=== PATIENT | male | born 1940 | race Caucasian/White ===

== ENCOUNTER 2023-04-09 10:20 | Inpatient (IN) | payer MEDICARE ==
[2023-04-09 10:34] LABS: Glucose,Whole Blood 139 mg/dL (70-110)
--- NOTE | 2023-04-09 11:06 | CT ---
EXAMINATION TYPE: CT brain wo con for TPA CT DLP: 1057 mGycm, Automated exposure control for dose reduction was used. DATE OF EXAM: 04/09/2023 10:54 AM COMPARISON: None.. CLINICAL INDICATION:Male, 82 years old with history of Neuro deficit, acute, stroke suspected, Lt leg numbness TECHNIQUE: Brain: Axial CT images of the brain were obtained with coronal and sagittal reformats created and rev iewed. Contrast used: None. Oral contrast used: None. FINDINGS: Brain: Extra-axial spaces: No abnormal extra-axial fluid collections. Ventricular system: Within normal limits Cerebral parenchyma: No acute intraparenchymal hemorrhage or mass effect. Multiple focal areas of hy poattenuation are noted bilaterally in the subcortical and periventricular white matter. Cerebellum: Unremarkable. Mass effect: No evidence of midline shift. Intracranial vasculature: Atherosclerotic calcifications of the intracranial vessels. Soft tissues: Normal. Calvarium/osseous structures: No depressed skull fracture. Paranasal sinuses and mastoid air cells: Mild scattered paranasal sinus disease. Visualized orbits: Bilateral aphakia IMPRESSION: 1. No evidence of intracranial hemorrhage. 2. Bilateral multifocal areas of hypoattenuation, favored remote punctate infarcts with encephalomala kvng and chronic ischemic small vessel changes.
[2023-04-09 11:09] LABS: Basophils % (A) 0 %; Eosinophils # (A) 0.5 k/uL (0-0.7); Eosinophils % (A) 7 %; HCT 41.6 % (39.0-53.0); HGB 14.1 gm/dL (13.0-17.5); Lymphocytes # (A) 1.4 k/uL (1.0-4.8); Lymphocytes % (A) 21 %; MCH 31.1 pg (25.0-35.0); MCHC 33.8 g/dL (31.0-37.0); MCV 91.8 fL (80.0-100.0); Mean Platelet Volume 7.9; Monocytes # (A) 0.4 k/uL (0-1.0); Monocytes % (A) 6 %; Neutrophils # (A) 4.2 k/uL (1.3-7.7); Neutrophils % (A) 64 %; Platelet Count 166 k/uL (150-450); RBC 4.53 m/uL (4.30-5.90); RDW 13.2 % (11.5-15.5); WBC 6.5 k/uL (3.8-10.6)
--- NOTE | 2023-04-09 11:17 | CT ---
EXAMINATION TYPE: CT angio head neck CT DLP: 511.6 mGycm, Automated exposure control for dose reduction was used. DATE OF EXAM: 04/09/2023 11:10 AM COMPARISON: . CLINICAL INDICATION:Male, 82 years old with history of Neuro deficit, acute, stroke suspected; PHH, L t leg weakness TECHNIQUE: Axially acquired helical CT angiogram of the head and neck was obtained with contrast. Axi al images are supplemented with 3D reconstructions which [facility] NASCET criteria used. Contrast used:65 mL of Isovue 300 with IV Contrast, Oral contrast used: None. FINDINGS: CTA HEAD: No evidence of acute intracranial hemorrhage, mass effect, or midline shift. The ventricles, sulci, a nd cisterns are unremarkable. The visualized portions of the internal carotid arteries, middle cerebral arteries, anterior cerebral arteries, and posterior cerebral arteries are patent. Multifocal right-sided M2/M3 segment stenoses. Mild focal left M1 segment stenosis. Partial circulation identified on the left. Multifocal ri ght P2/P3 segment stenosis The basilar and vertebral arteries are patent. Mild left V4 focal stenosis. CTA NECK: Right Carotid System: The common carotid artery and external carotid artery are patent. The carotid bifurcation demonstrate s no evidence of hemodynamically significant stenosis. The remaining portions of the internal carotid artery demonstrate normal size without significant narrowing. Left Carotid System: The common carotid artery and external carotid artery are patent. The carotid bifurcation demonstrate s no evidence of hemodynamically significant stenosis. The remaining portions of the internal carotid artery demonstrate normal size without significant narrowing. Vertebral arteries are patent without evidence hemodynamically significant stenosis. Mild stenosis of the origins of the vertebral artery secondary to calcified plaque. There is a three-vessel aortic arch. The origins of the great vessels are patent. No evidence of hemo dynamically significant stenosis. Upper thorax: Unremarkable. Bilateral subcentimeter thyroid nodules. IMPRESSION: 1. No evidence of dissection of the cervical internal carotid arteries or vertebral arteries or any e vidence of significant stenosis at the carotid bifurcations. 2. No evidence of intracranial high-grade stenosis or intracranial aneurysm. 3. Bilateral focal mild to moderate stenoses of the distal intracranial vasculature as described.
[2023-04-09 11:18] LABS: INR 0.9 (<1.2); Partial Thromboplastin Time 22.2 sec (22.0-30.0); Prothrombin Time 10.3 sec (10.0-12.5)
[2023-04-09 11:30] LABS: ALT 37 U/L (4-49); AST 26 U/L (17-59); African American GFR (CKD) 89 (>60 ml/min/1.73 sqM); Albumin 3.9 g/dL (3.5-5.0); Alkaline Phosphatase 90 U/L (38-126); Anion Gap 10 mmol/L; Blood Urea Nitrogen 16 mg/dL (9-20); Carbon Dioxide 22 mmol/L (22-30); Chloride 106 mmol/L (98-107); Creatine Kinase 116 U/L (55-170); Glucose 141 mg/dL (74-99); Non-African American GFR(CKD) 77 (>60 ml/min/1.73 sqM); Potassium 4.1 mmol/L (3.5-5.1); Sodium 138 mmol/L (137-145); Total Bilirubin 0.6 mg/dL (0.2-1.3); Total Protein 6.7 g/dL (6.3-8.2)
--- NOTE | 2023-04-09 11:39 | XR ---
EXAMINATION TYPE: XR chest 2V DATE OF EXAM: 04/09/2023 11:31 AM CLINICAL INDICATION:Male, 82 years old with history of altered mental status; [facility] COMPARISON: Chest radiographs from TECHNIQUE: XR chest 2V Frontal and lateral views of the chest. FINDINGS: Lungs/Pleura: There is no evidence of pleural effusion, focal consolidation, or pneumothorax. Pulmonary vascularity: Unremarkable. Heart/mediastinum: Cardiomediastinal silhouette is unremarkable. Musculoskeletal: No acute osseous pathology. IMPRESSION: No acute cardiopulmonary disease/process.
--- NOTE | 2023-04-09 13:01 | ED ---
General Adult HPI - General Chief complaint: Neuro Symptoms/Deficit Stated complaint: Neuro/weakness Time Seen by Provider: 04/09/23 10:25 Source: patient Mode of arrival: EMS Limitations: no limitations - History of Present Illness Initial comments: 82-year-old male with past history of dementia, hypertension who presents emergency department from an [facility] home. It is reported that the patient went to bed at 5 PM per the daughter. He was his normal self. He awoke this morning at 7:15 AM and had to crawl on the floor to get out of his room. He states he had complete numbness and tingling to his left leg and weakness in his left arm. Patient had speech deficit. No history of stroke. He does not take any blood thinners. He denies any headaches or visual changes. EMS report that the patient had complete resolution of his symptoms upon my evaluation the patient does have some weakness of his left upper extremity with drift and some left s ided facial droop as well as some dysarthria. No chest pain or short of breath. No other alleviating, precipitating or modifying factors - Related Data Home Medications Medication Instructions Recorded Confirmed ALPRAZolam [Xanax] 0.125 - 0.25 mg PO DAILY PRN 04/09/23 04/09/23 Donepezil [Aricept] 5 mg PO DAILY 04/09/23 04/09/23 Fluticasone/Umeclidin/Vilanter 1 puff INHALATION RT-DAILY 04/09/23 04/09/23 [Trelegy Ellipta 100-62.5-25] Losartan Potassium [Cozaar] 100 mg PO DAILY 04/09/23 04/09/23 Rosuvastatin [Crestor] 20 mg PO DAILY 04/09/23 04/09/23 amLODIPine [Norvasc] 10 mg PO DAILY 04/09/23 04/09/23 Allergies Allergy/AdvReac Type Severity Reaction Status Date / Time No Known Allergies Allergy Verified 04/09/23 13:25 Review of Systems ROS Statement: Those systems with pertinent positive or pertinent negative responses have been documented in the HPI. ROS Other: All systems not noted in ROS Statement are negative. Past Medical History Past Medical History: Hypertension Additional Past Medical History / Comment(s): Dementia, Past Surgical History: Unable to Obtain Past Psychological History: No Psychological Hx Reported Smoking Status: Former smoker Past Alcohol Use History: Occasional Past Drug Use History: None Reported General Exam Limitations: no limitations General appearance: alert, in no apparent distress Head exam: Present: atraumatic, normocephalic, normal inspection Eye exam: Present: normal appearance, PERRL, EOMI. Absent: scleral icterus, conjunctival injection, periorbital swelling ENT exam: Present: normal exam, mucous membranes moist Neck exam: Present: normal inspection. Absent: tenderness, meningismus, lymphadenopathy Respiratory exam: Present: normal lung sounds bilaterally. Absent: respiratory distress, wheezes, rales, rhonchi, stridor Cardiovascular Exam: Present: regular rate, normal rhythm, normal heart sounds. Absent: systolic murmur, diastolic murmur, rubs, gallop, clicks GI/Abdominal exam: Present: soft, normal bowel sounds. Absent: distended, tenderness, guarding, rebound, rigid Extremities exam: Present: normal inspection, full ROM, normal capillary refill. Absent: tenderness, pedal edema, joint swelling, calf tenderness Back exam: Present: normal inspection Neurological exam: Present: alert, other (Minor left-sided facial droop, minor dysarthria, drift of the left upper extremity) Psychiatric exam: Present: normal affect, normal mood Skin exam: Present: warm, dry, intact, normal color. Absent: rash Course Vital Signs 04/09/23 04/09/23 04/09/23 10:22 10:40 10:55 Temperature 98.2 F Pulse Rate 65 56 L 58 L Respiratory 18 18 18 Rate Blood Pressure 176/86 162/80 157/87 O2 Sat by Pulse 96 98 96 Oximetry 04/09/23 04/09/23 04/09/23 11:10 11:35 11:50 Temperature Pulse Rate 58 L 59 L 55 L Respiratory 18 18 18 Rate Blood Pressure 163/84 170/69 O2 Sat by Pulse 97 97 97 Oximetry 04/09/23 04/09/23 04/09/23 12:05 12:20 12:35 Temperature Pulse Rate 58 L 60 68 Respiratory 18 18 18 Rate Blood Pressure 163/90 160/87 158/79 O2 Sat by Pulse 96 98 98 Oximetry 04/09/23 04/09/23 04/09/23 13:05 13:35 14:05 Temperature 98.6 F Pulse Rate 60 59 L 61 Respiratory 18 18 18 Rate Blood Pressure 154/97 146/103 150/86 O2 Sat by Pulse 97 95 96 Oximetry 04/09/23 04/09/23 14:30 15:05 Temperature Pulse Rate 59 L 65 Respiratory 18 18 Rate Blood Pressure 150/87 O2 Sat by Pulse 95 96 Oximetry Medical Decision Making - Medical Decision Making Was pt. sent in by a medical professional or institution (, PA, SHELL FREEZING MACHINE OPERATOR, urgent care, hospital, or skilled nursing...) When possible be specific @ -No Did you speak to anyone other than the patient for history (EMS, parent, family, police, friend...)? What history was obtained from this source @ -Spoke with EMS and the patient's daughter Did you review nursing and triage notes (agree or disagree)? Why? @ -I reviewed and agree with nursing and triage notes Were old charts reviewed (outside hosp., previous admission, EMS record, old EKG, old radiological studies, urgent care reports/EKG's, skilled nursing records)? Report findings @ -No old charts were reviewed Differential Diagnosis (chest pain, altered mental status, abdominal pain women, abdominal pain men, vaginal bleeding, weakness, fever, dyspnea, syncope, headache, dizziness, GI bleed, back pain, seizure, CVA, palpatations, mental health, musculoskeletal)? @ -Differential CVA Ischemic stroke, hemorrhagic stroke, brain tumor, atypical migraine, Wernicke's encephalopathy, seizure, multiple sclerosis, meningitis, encephalitis, hypoglycemia, Guillain-Moe, electrolytes disturbance, myasthenia gravis.... This is not meant to be an all-inclusive list EKG interpreted by me (3pts min.). @ -Yes and demonstrates sinus bradycardia with a rate of 56. VA interval to 50. QRS 173. QTC of 504. Right bundle branch block. No high degree heart block. First-degree heart block X-rays interpreted by me (1pt min.). @ -Yes and demonstrates no acute intrathoracic process CT interpreted by me (1pt min.). @ -Yes and demonstrates punctate foci bilaterally U/S interpreted by me (1pt. min.). @ -None done What testing was considered but not performed or refused? (CT, X-rays, U/S, labs)? Why? @ -None What meds were considered but not given or refused? Why? @ -None Did you discuss the management of the patient with other professionals (professionals i.e. , PA, SHELL FREEZING MACHINE OPERATOR, lab, RT, psych nurse, social organization professor, charging manipulator, teacher, traffic officer, field nurse case manager)? Give summary @ -Spoke with Dr. Mchugh in regards to symptoms Was smoking cessation discussed for >3mins.? @ -No Was critical care preformed (if so, how long)? @ -Yes, 35 minutes for code stroke activation Were there social determinants of health that impacted care today? How? (Homeles sness, low income, unemployed, alcoholism, drug addiction, transportation, low edu. Level, literacy, decrease access to med. care, custodial, rehab)? @ -Yes patient lives at an [facility] due to advanced dementia Was there de-escalation of care discussed even if they declined (Discuss DNR or withdrawal of care, Hospice)? DNR status @ -Yes patient has an advanced directive with no CODE STATUS What co-morbidities impacted this encounter? (DM, HTN, Smoking, COPD, CAD, Cancer, CVA, ARF, Chemo, Hep., AIDS, mental health diagnosis, sleep apnea, morbid obesity)? @ -dementia Was patient admitted / discharged? Hospital course, mention meds given and route, prescriptions, significant lab abnormalities, going to OR and other pertinent info. @ -Admitted. Upon arrival patient was placed into room 23. NIH is assessed and the patient scores a 3. Code stroke is activated. Last known well was 5 pm. Laboratory studies are conducted. Patient does go for CT and CT angiography of the brain. CT does demonstrate multiple punctate foci bilaterally of hypoattenuation. He is not a TPA candidate as he is outside the window for treatment. Results are discussed with his family. Recommended admission for which the patient and family were agreeable. Patient was given an aspirin. Spoke with Dr. Wallace for admission Undiagnosed new problem with uncertain prognosis? @ -Yes Drug Therapy requiring intensive monitoring for toxicity (Heparin, Nitro, Insulin, Cardizem)? @ -No Were any procedures done? @ -No Diagnosis/symptom? @ -Acute left-sided facial droop, acute CVA suspected Acute, or Chronic, or Acute on Chronic? @ -Acute Uncomplicated (without systemic symptoms) or Complicated (systemic symptoms)? @ -Complicated Side effects of treatment? @ -No Exacerbation, Progression, or Severe Exacerbation? @ -No Poses a threat to life or bodily function? How? (Chest pain, USA, LA, pneumonia, PE, COPD, DKA, ARF, appy, cholecystitis, CVA, Diverticulitis, Homicidal, Suicidal, threat to staff... and all critical care pts) @ -Yes patient presents with strokelike symptoms - Lab Data Result diagrams: 04/09/23 10:35 04/09/23 10:35 Lab Results 04/09/23 04/09/23 04/09/23 Range/Units 10:33 10:35 10:35 WBC 6.5 (3.8-10.6) k/uL RBC 4.53 (4.30-5.90) m/uL Hgb 14.1 (13.0-17.5) gm/dL Hct 41.6 (39.0-53.0) % MCV 91.8 (80.0-100.0) fL MCH 31.1 (25.0-35.0) pg MCHC 33.8 (31.0-37.0) g/dL RDW 13.2 (11.5-15.5) % Plt Count 166 (150-450) k/uL MPV 7.9 Neutrophils % 64 % Lymphocytes % 21 % Monocytes % 6 % Eosinophils % 7 % Basophils % 0 % Neutrophils # 4.2 (1.3-7.7) k/uL Lymphocytes # 1.4 (1.0-4.8) k/uL Monocytes # 0.4 (0-1.0) k/uL Eosinophils # 0.5 (0-0.7) k/uL Basophils # 0.0 (0-0.2) k/uL PT 10.3 (10.0-12.5) sec INR 0.9 (<1.2) APTT 22.2 (22.0-30.0) sec Sodium (137-145) mmol/L Potassium (3.5-5.1) mmol/L Chloride (98-107) mmol/L Carbon Dioxide (22-30) mmol/L Anion Gap mmol/L BUN (9-20) mg/dL Creatinine (0.66-1.25) mg/dL Est GFR (CKD-EPI)AfAm (>60 ml/min/1.73 sqM) Est GFR (CKD-EPI)NonAf (>60 ml/min/1.73 sqM) Glucose (74-99) mg/dL POC Glucose (mg/dL) 139 H (70-110) mg/dL POC Glu [employer] Mabel Schulte Calcium (8.4-10.2) mg/dL Total Bilirubin (0.2-1.3) mg/dL AST (17-59) U/L ALT (4-49) U/L Alkaline Phosphatase (38-126) U/L Creatine Kinase (55-170) U/L Troponin I (0.000-0.034) ng/mL Total Protein (6.3-8.2) g/dL Albumin (3.5-5.0) g/dL 04/09/23 04/09/23 Range/Units 10:35 10:35 WBC (3.8-10.6) k/uL RBC (4.30-5.90) m/uL Hgb (13.0-17.5) gm/dL Hct (39.0-53.0) % MCV (80.0-100.0) fL MCH (25.0-35.0) pg MCHC (31.0-37.0) g/dL RDW (11.5-15.5) % Plt Count (150-450) k/uL MPV Neutrophils % % Lymphocytes % % Monocytes % % Eosinophils % % Basophils % % Neutrophils # (1.3-7.7) k/uL Lymphocytes # (1.0-4.8) k/uL Monocytes # (0-1.0) k/uL Eosinophils # (0-0.7) k/uL Basophils # (0-0.2) k/uL PT (10.0-12.5) sec INR (<1.2) APTT (22.0-30.0) sec Sodium 138 (137-145) mmol/L Potassium 4.1 (3.5-5.1) mmol/L Chloride 106 (98-107) mmol/L Carbon Dioxide 22 (22-30) mmol/L Anion Gap 10 mmol/L BUN 16 (9-20) mg/dL Creatinine 0.93 (0.66-1.25) mg/dL Est GFR (CKD-EPI)AfAm 89 (>60 ml/min/1.73 sqM) Est GFR (CKD-EPI)NonAf 77 (>60 ml/min/1.73 sqM) Glucose 141 H (74-99) mg/dL POC Glucose (mg/dL) (70-110) mg/dL POC Glu [employer] ID Calcium 9.0 (8.4-10.2) mg/dL Total Bilirubin 0.6 (0.2-1.3) mg/dL AST 26 (17-59) U/L ALT 37 (4-49) U/L Alkaline Phosphatase 90 (38-126) U/L Creatine Kinase 116 (55-170) U/L Troponin I <0.012 (0.000-0.034) ng/mL Total Protein 6.7 (6.3-8.2) g/dL Albumin 3.9 (3.5-5.0) g/dL Disposition Clinical Impression: Cerebrovascular accident (CVA), Facial droop, Left arm weakness Disposition: ADMITTED IP TO THIS [facility] Condition: Serious Is patient prescribed a controlled substance at d/c from ED?: No Time of Disposition: 13:04 Decision to Admit Reason: Admit from EC Decision Date: 04/09/23 Decision Time: 13:04
[2023-04-09] MEDS ORDERED: ASPIRIN 325 MG TAB PO STA (13:05)
[2023-04-09] MEDS ORDERED: ALPRAZolam 0.25 MG TAB PO PRN (15:11)
--- NOTE | 2023-04-09 15:11 | P.HPIM ---
History of Present Illness H&P Date: 04/09/23 History of Presenting Illness: Patient is a very pleasant 82-year-old male with a past medical history of dementia, hypertension, and hyperlipidemia. He presented to emergency de partment from an [facility] home with reports that patient went bed at 5 PM the evening before and awoke this morning at 7:15 AM with left-sided weakness and had to crawl on the floor to get out of his room. Patient was reported to have a speech deficit and left-sided facial droop. EMS was called for transportation to the hospital. Upon arrival to our facility patient continues with left-sided facial droop and left upper extremity arm drift. Patient appears to have equal strength and movement of the bilateral lower extremities. Speech is currently clear, patient is noted to have mild expressive aphasia but this may also be baseline with his dementia. He is currently alert to person and place but confused to time and situation and this is reported to be patient's baseline. Patient following commands and is denying any complaints at this time including headache, lightheadedness, dizziness, changes in vision or hearing, dysphasia or difficulty swallowing, chest pain or palpitations, shortness of breath, or experiencing any numbness/tingling in his extremities. Patient underwent full evaluation the emergency department. Vital signs upon arrival as follows blood pressure 176/86, heart rate 65, respiratory rate 18, temperature 98.2F, SpO2 96% on room air EKG completed showing sinus bradycardia at 56 bpm with a first- degree AV block with DC interval of 250 ms. Gujxa-kl-[id number] glucose was completed resulting in the 139. CT head was completed negative for acute intercranial process revealing bilateral multifocal areas of hypotension relation favoring remote punctate infarcts with encephalomalacia and chronic ischemic small vessel changes. Labs completed and reviewed. CBC, coagulation profile, and CMP were all unremarkable. Troponin was negative at less than 0.012. CTA head revealed bilateral focal mild to moderate stenosis of the distal intracranial vascular and no evidence of intracranial high-grade stenosis or aneurysm. CTA neck showing no evidence of dissection of the cervical internal carotid arteries or vertebral arteries and no evidence of significant stenosis at carotid bifurcations. Stroke code was called upon patient's arrival. ED doctor reported initial NIH of 3, activated code stroke and discussed case with neuro interventional is Dr. Vazquez, reporting patient is not a candidate for TPA secondary to being outside of the window for treatment. patient being admitted under our services with consultation to neurology. Review of systems: Pertinent positives and negatives as discussed in HPI, a complete review of systems was performed and all other systems are negative. Physical exam: Vital signs reviewed and stable. General: Nontoxic, no distress and appears stated age. Derm: Skin warm and dry, normal coloration for ethnicity. Head: Atraumatic, normocephalic and symmetric. Eyes: EOMs intact, no lid lag, and anicteric sclera Mouth: no lip lesions, mucus membranes moist Cardiovascular: regular rate and rhythm with normal S1S2, systolic murmur, positive posterior tibial pulses bilaterally, and cap refill < 2 seconds. Lungs: Respirations even, regular, and unlabored on room air. Lungs diminished, no adventitious sounds noted including crackles, rales, rhonchi, or wheezes. No accessory muscle usage. Abdominal: soft, nontender to palpation, no guarding, no appreciable organomegaly Ext: ROM intact. No gross muscle atrophy, no edema, no contractures Neuro: Speech clear but did have some expressive aphasia unclear if this is baseline, left-sided facial droop present, GCS 14. Psych: Alert and oriented to person, place, time, and situation. Appropriate and pleasant affect. Assessment and Plan of Care: Left-sided facial droop and left upper extremity weakness, likely acute CVA Hypertension Hyperlipidemia Dementia -NIH stroke scale -Neuro checks every 15 minutes 8, every 30 minutes 12, hourly 16, and every 4 hours. -Fall precautions -Consult to physical and occupational therapy -Consult to speech and language pathologist -Bedside swallow eval, if patient passes may start on heart healthy diet -Patient started on daily aspirin 81 mg and atorvastatin 40 mg. -Patient may resume losartan 900 mg daily starting tomorrow. At this time we will allow for permissive hypertension. -Patient to remain on continuous telemetry monitoring. -Order placed for echocardiogram. -Lipid profile to be completed with a.m. labs. Data and Imaging reviewed: -Vital signs upon arrival as follows blood pressure 176/86, heart rate 65, respiratory rate 18, temperature 98.2F, SpO2 96% on room air -EKG completed showing sinus bradycardia at 56 bpm with a first-degree AV block with DC interval of 250 ms. -Kpriv-gi-[id number] glucose was completed resulting in the 139. -CT head was completed negative for acute intercranial process revealing bilateral multifocal areas of hypotension relation favoring remote punctate infarcts with encephalomalacia and chronic ischemic small vessel changes. -Labs completed and reviewed. CBC, coagulation profile, and CMP were all unremarkable. Troponin was negative at less than 0.012. -CTA head revealed bilateral focal mild to moderate stenosis of the distal intracranial vascular and no evidence of intracranial high-grade stenosis or aneurysm. -CTA neck showing no evidence of dissection of the cervical internal carotid arteries or vertebral arteries and no evidence of significant stenosis at carotid bifurcations. Stroke code was activated in the emergency department upon patient's arrival. ED doctor reported initial NIH of 3, activated code stroke and discussed case with neuro interventional is Dr. Vazquez, reporting patient is not a candidate for TPA secondary to being outside of the window for treatment. patient being admitted under our services with consultation to neurology. CODE STATUS: DO NOT RESUSCITATE/DO NOT INTUBATE DVT prophylaxis: Lovenox Anticipated discharge date: Clinical course to determine Anticipated discharge place: clinical course to determine Patient was seen independently by Nurse Practitioner. This document was prepared using [employer] dictation software. Please allow for errors in field traffic investigator while rare they do occur. Rocky Dowling NP rendered care for this patient independently, reviewed the fin dings and plan as documented in the note above. I did not physically speak with or examine the patient on this date. Past Medical History Past Medical History: Hypertension Additional Past Medical History / Comment(s): Dementia, Past Surgical History: Unable to Obtain Past Psychological History: No Psychological Hx Reported Smoking Status: Former smoker Past Alcohol Use History: Occasional Past Drug Use History: None Reported Medications and Allergies Home Medications Medication Instructions Recorded Confirmed Type ALPRAZolam [Xanax] 0.125 - 0.25 mg PO DAILY PRN 04/09/23 04/09/23 History Donepezil [Aricept] 5 mg PO DAILY 04/09/23 04/09/23 History Fluticasone/Umeclidin/Vilanter 1 puff INHALATION RT-DAILY 04/09/23 04/09/23 History [Trelegy Ellipta 100-62.5-25] Losartan Potassium [Cozaar] 100 mg PO DAILY 04/09/23 04/09/23 History Rosuvastatin [Crestor] 20 mg PO DAILY 04/09/23 04/09/23 History amLODIPine [Norvasc] 10 mg PO DAILY 04/09/23 04/09/23 History Allergies Allergy/AdvReac Type Severity Reaction Status Date / Time No Known Allergies Allergy Verified 04/09/23 13:25 Physical Exam Vitals: Vital Signs Temp Pulse Resp BP Pulse Ox 04/09/23 14:30 59 L 18 95 04/09/23 14:05 61 18 150/86 96 04/09/23 13:35 98.6 F 59 L 18 146/103 95 04/09/23 13:05 60 18 154/97 97 04/09/23 12:35 68 18 158/79 98 04/09/23 12:20 60 18 160/87 98 04/09/23 12:05 58 L 18 163/90 96 04/09/23 11:50 55 L 18 170/69 97 04/09/23 11:35 59 L 18 97 04/09/23 11:10 58 L 18 163/84 97 04/09/23 10:55 58 L 18 157/87 96 04/09/23 10:40 56 L 18 162/80 98 04/09/23 10:22 98.2 F 65 18 176/86 96 Intake and Output 04/09/23 04/09/23 04/09/23 06:59 14:59 22:59 Output Total 550 Balance -550 Output: Urine 550 Other: # Voids 1 Weight 95.254 kg Results CBC & Chem 7: 04/09/23 10:35 04/09/23 10:35 Labs: Abnormal Lab Results - Last 24 Hours (Table) 04/09/23 04/09/23 Range/Units 10:33 10:35 Glucose 141 H (74-99) mg/dL POC Glucose (mg/dL) 139 H (70-110) mg/dL
[2023-04-09] MEDS: ENOXAPARIN 40 MG/0.4 ML SYRINGE SQ SCH (20:17)
[2023-04-09] MEDS ORDERED: ATORVASTATIN 80 MG TAB PO SCH (21:00)
[2023-04-10] MEDS ORDERED: NON FORMULARY DRUG (Fluticasone/Umeclidin/Vilanter [Trelegy Ellipta 100-62.5-25] 1 EACH Bl INHALATION SCH (08:00)
[2023-04-10] MEDS ORDERED: ASPIRIN 325 MG TAB PO SCH (09:00)
[2023-04-10] MEDS ORDERED: DONEPEZIL 5 MG TAB PO SCH (09:00)
[2023-04-10] MEDS ORDERED: ATORVASTATIN 40 MG TAB PO SCH (09:00)
[2023-04-10] MEDS: SYMBICORT 80-4.5 MCG INHALER INHALATION SCH ×2 (09:08→19:46)
[2023-04-10] MEDS: IPRATROPIUM 0.5 MG/2.5 ML NEBU INHALATION SCH ×4 (09:08→19:46)
[2023-04-10 11:01] LABS: Chol/HDL Ratio 2.33 Ratio; LDL Cholesterol,Calculated 38.5 mg/dL (0.0-131.0)
[2023-04-10 11:02] LABS: Glucose,Whole Blood 212 mg/dL (70-110)
[2023-04-10] MEDS: ASPIRIN 81 MG PO SCH (11:31)
[2023-04-10] MEDS: LOSARTAN 50 MG TAB PO SCH (11:31)
[2023-04-10] MEDS: amLODIPine 10 MG TAB PO SCH (11:31)
[2023-04-10] MEDS: ATORVASTATIN 40 MG TAB PO SCH (11:31)
[2023-04-10] MEDS: CLOPIDOGREL 75 MG TAB PO SCH (13:53)
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
--- NOTE | 2023-04-10 14:06 | CA ---
Transthoracic Echo Report Name: Riaz Monge Age: 82 Gender: M : 1940 Exam Date: 04/10/2023 14:01 Exam Location: [place] [facility] Ht (in): 71 Wt (lb): 210 Ordering Physician: Rocky Dowling Attending/Referring Phys: Gas Regulator Repairer Helper Feliz Garnica Procedure CPT: Indications: CVA Cardiac Hx: Technical Quality: Fair Contrast 1: Total Dose (mL): Contrast 2: Total Dose (mL): MEASUREMENTS (Male / Female) Normal Values 2D ECHO LV Diastolic Diameter PLAX 4.5 cm 4.2 - 5.9 / 3.9 - 5.3 cm LV Systolic Diameter PLAX 2.6 cm IVS Diastolic Thickness 1.0 cm 0.6 - 1.0 / 0.6 - 0.9 cm LVPW Diastolic Thickness 1.1 cm 0.6 - 1.0 / 0.6 - 0.9 cm LV Relative Wall Thickness 0.5 RV Internal Dim ED PLAX 2.9 cm LVOT Diameter 2.3 cm Aortic Root Diameter 3.5 cm LA Systolic Diameter LX 2.4 cm 3.0 - 4.0 / 2.7 - 3.8 cm LV Diastolic Volume MOD BP 75.2 cm??? 67 - 155 / 56 - 104 cm??? LV Systolic Volume MOD BP 33.8 cm??? 22 - 58 / 19 - 49 cm??? LV Ejection Fraction MOD BP 55.1 % >= 55 % LV Cardiac Index MOD BP 1165.9 cm???/min???m??? LV Diastolic Volume MOD 4C 88.9 cm??? LV Systolic Volume MOD 4C 35.5 cm??? LV Ejection Fraction MOD 4C 60.1 % LV Cardiac Index MOD 4C 1501.3 cm???/min???m??? LV Diastolic Length 4C 8.6 cm LV Systolic Length 4C 7.2 cm LV Diastolic Volume MOD 2C 56.0 cm??? LV Systolic Volume MOD 2C 31.2 cm??? LV Ejection Fraction MOD 2C 44.3 % LV Cardiac Index MOD 2C 698.5 cm???/min???m??? LV Diastolic Length 2C 7.4 cm LV Systolic Length 2C 7.0 cm LA Volume 49.5 cm??? 18 - 58 / 22 - 52 cm??? LA Volume Index 22.4 cm???/m??? 16 - 28 cm???/m??? Ascending Aorta Diameter 3.6 cm DOPPLER AV Peak Velocity 116.4 cm/s AV Peak Gradient 5.4 mmHg LVOT Peak Velocity 80.9 cm/s LVOT Peak Gradient 2.6 mmHg LVOT Velocity Time Integral 20.6 cm LVOT Stroke Volume 83.7 cm??? LVOT Stroke Volume Index 38.9 ml/m??? LVOT Cardiac Index 2351.5 cm???/min???m??? AV Area Cont Eq pk 2.8 cm??? MV Peak Velocity 108.0 cm/s MV Peak Gradient 4.7 mmHg MV Mean Velocity 59.3 cm/s MV Mean Gradient 1.7 mmHg MV Velocity Time Integral 42.7 cm Mitral E Point Velocity 67.7 cm/s Mitral A Point Velocity 96.7 cm/s Mitral E to A Ratio 0.7 MV Deceleration Time 486.3 ms MV E' Velocity 4.8 cm/s Mitral E to MV E' Ratio 14.1 TR Peak Velocity 99.9 cm/s TR Peak Gradient 4.0 mmHg Right Ventricular Systolic Press 9.0 mmHg PV Peak Velocity 124.1 cm/s PV Peak Gradient 6.2 mmHg FINDINGS Left Ventricle Normal LV size and wall thickness. Left ventricular ejection fraction is estimated at 50-55 %. Right Ventricle Normal right ventricular size. Right Atrium Normal right atrial size. Left Atrium Normal left atrial size. LA volume index= 23ml/m2 Mitral Valve Structurally normal mitral valve. No mitral regurgitation. Aortic Valve Trileaflet aortic valve. No aortic valve stenosis or regurgitation. Tricuspid Valve Structurally normal tricuspid valve. Trace TR. Pulmonic Valve Pulmonic valve not well visualized. No pulmonic regurgitation. Pericardium Normal pericardium. Aorta Not well visualized. CONCLUSIONS Left ventricular ejection fraction 50-55% No mitral regurgitation Trace tricuspid regurgitation No pericardial effusion Previewed by: Dr. Chseter Palencia DO (Electronically Signed) Final Date: 10 April 2023 14:05
--- NOTE | 2023-04-10 16:51 | P.PN ---
Subjective Progress Note Date: 04/10/23 History of Presenting Illness: Patient is a very pleasant 82-year-old male with a past medical history of dementia, hypertension, and hyperlipidemia. He presented to emergency [facility] from an [facility] home with reports that patient went bed at 5 PM the evening before and awoke this morning at 7:15 AM with left-sided weakness and had to crawl on the floor to get out of his room. Patient was reported to have a speech deficit and left-sided facial droop. EMS was called for transportation to the hospital. Upon arrival to our facility patient continues with left-sided facial droop and left upper extremity arm drift. Patient appears to have equal strength and movement of the bilateral lower extremities. Speech is currently clear, patient is noted to have mild expressive aphasia but this may also be baseline with his dementia. He is currently alert to person and place but co nfused to time and situation and this is reported to be patient's baseline. Patient following commands and is denying any complaints at this time including headache, lightheadedness, dizziness, changes in vision or hearing, dysphasia or difficulty swallowing, chest pain or palpitations, shortness of breath, or experiencing any numbness/tingling in his extremities. Patient underwent full evaluation the emergency department. Vital signs upon arrival as follows blood pressure 176/86, heart rate 65, respiratory rate 18, temperature 98.2F, SpO2 96% on room air EKG completed showing sinus bradycardia at 56 bpm with a first- degree AV block with CT interval of 250 ms. [id number]-kk-[id number] glucose was completed resulting in the 139. CT head was completed negative for acute intercranial process revealing bilateral multifocal areas of hypotension relation favoring remote punctate infarcts with encephalomalacia and chronic ischemic small vessel changes. Labs completed and reviewed. CBC, coagulation profile, and CMP were all unremarkable. Troponin was negative at less than 0.012. CTA head revealed bilateral focal mild to moderate stenosis of the distal intracranial vascular and no evidence of intracranial high-grade stenosis or aneurysm. CTA neck showing no evidence of dissection of the cervical internal carotid arteries or vertebral arteries and no evidence of significant stenosis at carotid bifurcations. Stroke code was called upon patient's arrival. ED doctor reported initial NIH of 3, activated code stroke and discussed case with neuro interventional is Dr. Vazquez, reporting patient is not a candidate for TPA secondary to being outside of the window for treatment. Patient being admitted under our services with consultation to neurology. Physical exam: Vital signs reviewed and stable. General: Nontoxic, no distress and appears stated age. Derm: Skin warm and dry, normal coloration for ethnicity. Head: Atraumatic, normocephalic and symmetric. Eyes: EOMs intact, no lid lag, and anicteric sclera Mouth: no lip lesions, mucus membranes moist Cardiovascular: regular rate and rhythm with normal S1S2, systolic murmur, positive posterior tibial pulses bilaterally, and cap refill < 2 seconds. Lungs: Respirations even, regular, and unlabored on room air. Lungs diminished, no adventitious sounds noted including crackles, rales, rhonchi, or wheezes. No accessory muscle usage. Abdominal: soft, nontender to palpation, no guarding, no appreciable organomegaly Ext: ROM intact. No gross muscle atrophy, no edema, no contractures Neuro: Speech clear but does have moments of slurring and mild expressive aphasia unclear if this is baseline, left-sided facial droop present, GCS 14. Continues to have left arm drop. Psych: Alert and oriented to person, place, time, and situation. Appropriate and pleasant affect. Assessment and Plan of Care: Left-sided facial droop and left upper extremity weakness, acute CVA Hypertension Hyperlipidemia Dementia -Continue NIH stroke scale with neuro checks every 4 hours.every 4 hours. -Fall precautions -Consult to physical and occupational therapy -Consult to speech and language pathologist -Patient passed bedside swallow eval and has been started on heart healthy diet -Continue daily aspirin 81 mg and atorvastatin 40 mg. -Continue losartan 100 mg daily. -Patient to remain on continuous telemetry monitoring. -Order placed for echocardiogram. -Lipid profile unremarkable. -Hemoglobin A1c 6.7% Data and Imaging reviewed: -Vital signs reviewed and stable, blood pressure 165/85, heart rate 61, respiratory rate 14, temp 98.2F, SpO2 of 97% on room air. -Hemoglobin A1c was elevated 6.7%, lipid profile unremarkable CODE STATUS: DO NOT RESUSCITATE/DO NOT INTUBATE DVT prophylaxis: Lovenox Anticipated discharge date: Clinical course to determine Anticipated discharge place: clinical course to determine Patient was seen independently by Nurse Practitioner. This document was prepared using [employer] dictation software. Please allow for errors in photographer's model while rare they do occur. Rocky Dowling NP rendered care for this patient independently, reviewed the findings and plan as documented in the note above. I did not physically speak with or examine the patient on this date. Objective - Vital Signs Vital signs: Vital Signs Temp 98.6 F 04/09/23 19:07 Pulse 61 04/10/23 05:24 Resp 20 04/10/23 05:24 BP 159/88 04/10/23 05:24 Pulse Ox 97 04/10/23 05:24 FiO2 Intake & Output 04/09/23 04/10/23 04/10/23 18:59 06:59 18:59 Output Total 550 Balance -550 Weight 95.254 kg Output: Urine 550 Other: # Voids 1 - Labs CBC & Chem 7: 04/09/23 10:35 04/09/23 10:35 Labs: Abnormal Lab Results - Last 24 Hours (Table) 04/09/23 04/09/23 Range/Units 10:33 10:35 Glucose 141 H (74-99) mg/dL POC Glucose (mg/dL) 139 H (70-110) mg/dL
[2023-04-10] MEDS: ENOXAPARIN 40 MG/0.4 ML SYRINGE SQ SCH (20:30)
[2023-04-11] MEDS: SYMBICORT 80-4.5 MCG INHALER INHALATION SCH ×2 (07:49→20:11)
[2023-04-11] MEDS: IPRATROPIUM 0.5 MG/2.5 ML NEBU INHALATION SCH ×4 (07:50→20:11)
[2023-04-11] MEDS: ASPIRIN 81 MG PO SCH (08:58)
[2023-04-11] MEDS: DONEPEZIL 10 MG TAB PO SCH (08:58)
[2023-04-11] MEDS: ATORVASTATIN 40 MG TAB PO SCH (08:58)
[2023-04-11] MEDS: CLOPIDOGREL 75 MG TAB PO SCH (08:58)
[2023-04-11] MEDS: LOSARTAN 50 MG TAB PO SCH (08:59)
[2023-04-11] MEDS: amLODIPine 10 MG TAB PO SCH (08:59)
--- NOTE | 2023-04-11 09:39 | MR ---
EXAMINATION TYPE: MR brain wo con DATE OF EXAM: 04/11/2023 9:21 AM CLINICAL INDICATION:Male, 82 years old with history of Acute stroke; PHH, Acute Stroke, Lt leg weakne ss COMPARISON: 04/09/2023. TECHNIQUE: Multi planar, multi sequence imaging was performed through the brain including: T1, T2, In version recovery, Diffusion weighted imaging, and gradient echo imaging. No gadolinium was given. FINDINGS: There is T2 shine through the bilateral frontal lobes with high DWI and ADC signal. These l esions have surrounding gliosis. The millan-white junctions, ventricular system, and cisterns appear unremarkable. Scattered foci of hi gh T2 signal intensity are seen within the periventricular white matter. Midline structures show no a bnormality. Diffusion-weighted imaging shows no evidence of restricted diffusion. The susceptibility weighted images punctate focus of blooming artifact left elda right thalamus and right and temporal l obe posteriorly. Facet is compatible with microhemorrhage. The bone marrow signal is within normal limits. Paranasal sinuses and mastoid air cells: No significant paranasal sinus disease. Visualized orbits: Orbital contents are intact. IMPRESSION: 1. No evidence for acute/subacute CVA. T2 shine through within the bilateral frontal lobes on diffusi on-weighted imaging suggesting remote injuries 2. Nonspecific white matter changes, likely secondary to small vessel ischemic disease.
[2023-04-11 12:49] LABS: Glucose,Whole Blood 205 mg/dL (70-110)
[2023-04-11] MEDS ORDERED: DEXTROSE 50% SYRINGE 50 ML IVP PRN ×2 (13:15)
--- NOTE | 2023-04-11 13:17 | P.PN ---
Subjective Progress Note Date: 04/11/23 Hospital Course: Patient is a very pleasant 82-year-old male with a past medical history of dementia, hypertension, and hyperlipidemia. He presented to emergency department from an [facility] home with reports that patient went bed at 5 PM the evening before and awoke this morning at 7:15 AM with left-sided weakness and had to crawl on the floor to get out of his room. Patient was reported to have a speech deficit and left-sided facial droop. EMS was called for transportation to the hospital. Upon arrival to our facility patient continues with left-sided facial droop and left upper extremity arm drift. Patient appears to have equal strength and movement of the bilateral lower extremities. Speech is currently clear, patient is noted to have mild expressive aphasia but this may also be baseline with his dementia. Vital signs upon arrival as follows blood pressure 176/86, heart rate 65, respiratory rate 18, temperature 98.2F, SpO2 96% on room air EKG completed showing sinus bradycardia at 56 bpm with a first-degree AV block with NJ interval of 250 ms. Zmnra-uv-qkzd glucose was completed resulting in the 139. CT head was completed negative for acute intercranial process revealing bilateral multifocal areas of hypotension relation favoring remote punctate infarcts with encephalomalacia and chronic ischemic small vessel changes. CBC, coagulation profile, and CMP were all unremarkable. Troponin was negative at less than 0.012. CTA head revealed bilateral focal mild to moderate stenosis of the distal intracranial vascular and no evidence of intracranial high-grade stenosis or aneurysm. CTA neck showing no evidence of dissection of the cervical internal carotid arteries or vertebral arteries and no evidence of significant stenosis at carotid bifurcations. Stroke code was called upon patient's arrival. ED doctor reported initial NIH of 3, activated code stroke and discussed case with neuro interventional is Dr. Vazquez, reporting patient is not a candidate for TPA secondary to being outside of the window for treatment. Patient being admitted under our services with consultation to neurology. Echocardiogram showed LVEF 50-55%, trace tricuspid regurgitation. Brain MRI showed no evidence of acute/subacute CVA, evidence of remote injuries, nonspecific white matter changes secondary to small vessel ischemic disease. Subjective: Patient seen and examined at bedside. No acute events overnight. Per daughter, patient will likely benefit from nursing facility. Pertinent positives and negatives as discussed above, a complete review of systems was performed and all other systems are negative. Vitals Signs Reviewed. General: nontoxic, no distress, appears at stated age Derm: warm, dry Head: atraumatic, normocephalic, symmetric Eyes: EOMI, no lid lag, anicteric sclera Mouth: no lip lesion, mucus membranes moist Cardiovascular: S1S2 reg, no murmur Lungs: CTA bilateral, no rhonchi, no rales , no accessory muscle use Abdominal: soft, nontender to palpation, no guarding, no appreciable organomegaly Ext: no gross muscle atrophy, no edema, no contractures Neuro: Left facial droop, left arm drift Psych: Alert, oriented 2, appropriate affect Data Reviewed Today: Pertinent Labs: Most blood glucose levels range between 139-212, A1c 6.7, LDL 38.5 Imaging: Echocardiogram showed LVEF 50-55%, trace tricuspid regurgitation. Brain MRI showed no evidence of acute/subacute CVA, evidence of remote injuries, nonspecific white matter changes secondary to small vessel ischemic disease. Assessment and Plan: Patient is currently being monitored in the ICU, no beds available on stepdown unit. Prognosis guarded. Active: Left-sided facial droop and left upper extremity weakness, acute CVA Hypertension Hyperlipidemia Dementia Type 2 diabetes, A1c 6.7 -Nephrology following, continue aspirin 81 mg daily, Plavix 75 mg for 21 days, Aricept increased to 10 mg daily -Continue atorvastatin 40 mg daily -continue amlodipine 10 mg, and losartan 100 mg daily -Started on sliding scale insulin, monitor for hypoglycemia -Continue neuro checks -Place patient on telemetry -PT/OT/speech therapy -Patient will likely need shelter facility DVT ppx: Lovenox Code status: Full code Anticipated discharge place: Pending clinical course Anticipated discharge time: Pending clinical course Objective - Vital Signs Vital signs: Vital Signs Temp 98.2 F 04/11/23 12:00 Pulse 90 04/11/23 12:46 Resp 16 04/11/23 12:46 BP 153/87 04/11/23 12:46 Pulse Ox 98 04/11/23 12:46 FiO2 Intake & Output 04/10/23 04/11/23 04/11/23 18:59 06:59 18:59 Intake Total 1450 Output Total 750 400 Balance -750 1050 Weight 89.7 kg Intake: IV 10 Invasive Line 1 10 Oral 1440 Output: Urine 750 400 Stool 0 Other: Voiding Method Urinal Bedside Commode Urinal Diaper Urinal # Voids 1 1 # Bowel Movements 1 - Labs CBC & Chem 7: 04/09/23 10:35 04/09/23 10:35 Labs: Abnormal Lab Results - Last 24 Hours (Table) 04/11/23 Range/Units 12:47 POC Glucose (mg/dL) 205 H (70-110) mg/dL
[2023-04-11 16:35] LABS: Glucose,Whole Blood 148 mg/dL (70-110)
[2023-04-11] MEDS: INSULIN ASPART (NovoLOG) 100 UNIT/ML VIAL SQ SCH ×2 (16:41→20:25)
[2023-04-11] MEDS ORDERED: LOSARTAN 50 MG TAB PO PRN (16:56)
[2023-04-11] MEDS ORDERED: amLODIPine 10 MG TAB PO PRN (16:56)
--- NOTE | 2023-04-11 17:18 | P.CRDCN ---
History of Present Illness Consult date: 04/11/23 History of present illness: HISTORY OF PRESENTING ILLNESS 82-year-old with PMH of dementia, HTN, hyperlipidemia. Presents to the emergency department due to the concerns of speech deficit and left-sided facial droop. Patient reports that he woke up twice a day symptoms at 7 AM. Last well-known time was 5. Before he went to sleep. On admission to ER he had left-sided facial droop and left upper extremity arm drift. Speech was clear but seemed to have mild expressive aphasia. He was not a candidate for TPA. His initial troponin was 0.12. CT head showed bilateral focal [id number] stenosis of distal intracranial vessels, with n o evidence of high-grade stenosis or aneurysms. His ECG showed sinus rhythm with first-degree AV block. CT head showed bilateral multifocal areas of hypoattenuation and multiple small areas of encep halomalacia. He's been treated for several aspirin accident and cardiology was consulted to look for any cardiac embolic etiology. REVIEW OF SYSTEMS 14 point review of system is negative except what is mentioned above in HPI. PHYSICAL EXAMINATION Vital signs reviewed. Head: Normocephalic. Eyes: Sclerae nonicteric. Neck: Brisk carotid upstroke, no jugular venous distention. Lungs: Clear to auscultation. Heart: Regular rate and rhythm, S1-S2, no S3, no murmur or rub. Abdomen: Soft nontender, positive bowel sounds no organomegaly. Extremities: No edema, intact distal pulses. Neuro: Alert, oritented, left sided facial droop ASSESSMENT Acute CVA Moderate intracranial vessel stenosis Essential hypertension next and Type II Diabetes history dyslipidemia Dementia Prior tobacco user PLAN Obtain an echocardiogram with bubble study Continue aspirin and Plavix as per neurology recommendations. Agree with discontinue Plavix after 21 days and continuing aspirin. Continue high-intensity statin Monitor on tele for Atrial fibrillation. No A. fib so far. On discharge plan for 30 day event monitor to be done from outpatient clinic. Past Medical History Past Medical History: Hypertension Additional Past Medical History / Comment(s): Dementia, History of Any Multi-Drug Resistant Organisms: None Reported Past Surgical History: Unable to Obtain Past Psychological History: No Psychological Hx Reported Smoking Status: Former smoker Past Alcohol Use History: Occasional Past Drug Use History: None Reported Medications and Allergies Home Medications Medication Instructions Recorded Confirmed Type ALPRAZolam [Xanax] 0.125 - 0.25 mg PO DAILY PRN 04/09/23 04/09/23 History Donepezil [Aricept] 5 mg PO DAILY 04/09/23 04/09/23 History Fluticasone/Umeclidin/Vilanter 1 puff INHALATION RT-DAILY 04/09/23 04/09/23 History [Trelegy Ellipta 100-62.5-25] Losartan Potassium [Cozaar] 100 mg PO DAILY 04/09/23 04/09/23 History Rosuvastatin [Crestor] 20 mg PO DAILY 04/09/23 04/09/23 History amLODIPine [Norvasc] 10 mg PO DAILY 04/09/23 04/09/23 History Allergies Allergy/AdvReac Type Severity Reaction Status Date / Time No Known Allergies Allergy Verified 04/09/23 13:25 Physical Exam Vitals: Vital Signs Temp Pulse Pulse Resp BP BP Pulse Ox 04/11/23 16:00 97.2 F L 72 14 165/90 95 04/11/23 12:46 90 16 153/87 98 04/11/23 12:00 98.2 F 75 14 154/78 95 04/11/23 07:56 57 L 14 157/90 95 04/11/23 04:00 98.0 F 56 L 14 156/78 95 04/11/23 00:00 97.8 F 57 L 14 139/78 98 04/10/23 20:00 97.7 F 53 L 14 157/88 97 Intake and Output 04/11/23 04/11/23 04/11/23 06:59 14:59 22:59 Intake Total 1460 600 Output Total 400 Balance 1060 600 Intake: IV 20 Invasive Line 1 20 Oral 1440 600 Output: Urine 400 Stool 0 Other: Voiding Method Urinal # Voids 1 1 # Bowel Movements 1 Weight 89.7 kg Results 04/09/23 10:35 04/09/23 10:35 Current Medications Generic Name Dose Route Start Last Admin Trade Name Freq PRN Reason Stop Dose Admin Alprazolam 0.25 mg 04/09/23 15:11 Alprazolam 0.25 Mg Tab PO DAILY PRN Anxiety Amlodipine Besylate 10 mg 04/11/23 16:56 Amlodipine 10 Mg Tab PO DAILY PRN BP > 200/120 Aspirin 81 mg 04/10/23 09:00 04/11/23 08:58 Aspirin 81 Mg PO 81 mg DAILY THIERRY Administration Atorvastatin Calcium 40 mg 04/10/23 09:00 04/11/23 08:58 Atorvastatin 40 Mg Tab PO 40 mg DAILY [facility] Administration Budesonide/Formoterol Fumarate 2 puff 04/10/23 08:00 04/11/23 07:49 Symbicort 80-4.5 Mcg Inhaler INHALATION Not Given RT-BID [facility] Clopidogrel Bisulfate 75 mg 04/10/23 13:15 04/11/23 08:58 Clopidogrel 75 Mg Tab PO 75 mg DAILY THIERRY Administration Dextrose/Water 25 ml 04/11/23 13:15 Dextrose 50% Syringe 50 Ml IVP PER PROTOCOL PRN Hypoglycemia Protocol Dextrose/Water 50 ml 04/11/23 13:15 Dextrose 50% Syringe 50 Ml IVP PER PROTOCOL PRN Hypoglycemia Protocol Donepezil HCl 10 mg 04/11/23 09:00 04/11/23 08:58 Donepezil 10 Mg Tab PO 10 mg DAILY [facility] Administration Enoxaparin Sodium 40 mg 04/09/23 19:00 04/10/23 20:30 Enoxaparin 40 Mg/0.4 Ml Syringe SQ 40 mg HS [facility] Administration Insulin Aspart 0 unit 04/11/23 17:30 04/11/23 16:41 Insulin Aspart (Novolog) 100 Unit/Ml Vial SQ Not Given ACHS [facility] Protocol Ipratropium [place] 0.5 mg 04/10/23 08:00 04/11/23 15:28 Ipratropium 0.5 Mg/2.5 Ml Nebu INHALATION Not Given RT-QID [facility] Losartan Potassium 100 mg 04/11/23 16:56 Losartan 50 Mg Tab PO DAILY PRN BP > 200/120 Intake and Output 04/11/23 04/11/23 04/11/23 06:59 14:59 22:59 Intake Total 1460 600 Output Total 400 Balance 1060 600 Intake: IV 20 Invasive Line 1 20 Oral 1440 600 Output: Urine 400 Stool 0 Other: Voiding Method Urinal # Voids 1 1 # Bowel Movements 1 Weight 89.7 kg 04/09/23 10:35 04/09/23 10:35
[2023-04-11] MEDS: ENOXAPARIN 40 MG/0.4 ML SYRINGE SQ SCH (20:25)
[2023-04-11 20:26] LABS: Glucose,Whole Blood 126 mg/dL (70-110)
[2023-04-12 06:47] LABS: Glucose,Whole Blood 133 mg/dL (70-110)
[2023-04-12] MEDS: INSULIN ASPART (NovoLOG) 100 UNIT/ML VIAL SQ SCH ×4 (07:03→20:32)
[2023-04-12] MEDS: SYMBICORT 80-4.5 MCG INHALER INHALATION SCH ×2 (07:38→20:08)
[2023-04-12] MEDS: IPRATROPIUM 0.5 MG/2.5 ML NEBU INHALATION SCH ×4 (07:38→20:08)
[2023-04-12] MEDS: ASPIRIN 81 MG PO SCH (09:19)
[2023-04-12] MEDS: ATORVASTATIN 40 MG TAB PO SCH (09:19)
[2023-04-12] MEDS: DONEPEZIL 10 MG TAB PO SCH (09:19)
[2023-04-12] MEDS: CLOPIDOGREL 75 MG TAB PO SCH (09:19)
[2023-04-12] MEDS: ACETAMINOPHEN TAB 325 MG TAB PO PRN (09:52)
--- NOTE | 2023-04-12 11:19 | P.PN ---
Subjective Progress Note Date: 04/11/23 Patient's nurse perfect served at 12:52 PM the patient's symptoms are worsening. Left hand grasp is weaker than right. Left arm is positive for drift. Left- sided facial droop is present. Blood glucose and blood pressure are normal. I came to see patient right away, appears stable. Patient's daughter was present. Objective - Vital Signs Vital signs: Vital Signs Temp 98.2 F 04/11/23 12:00 Pulse 90 04/11/23 12:46 Resp 16 04/11/23 12:46 BP 153/87 04/11/23 12:46 Pulse Ox 98 04/11/23 12:46 FiO2 Intake & Output 04/10/23 04/11/23 04/11/23 18:59 06:59 18:59 Intake Total 1460 Output Total 750 400 Balance -750 1060 Weight 89.7 kg Intake: IV 20 Invasive Line 1 20 Oral 1440 Output: Urine 750 400 Stool 0 Other: Voiding Method Urinal Bedside Commode Urinal Diaper Urinal # Voids 1 1 # Bowel Movements 1 - Exam Patient is alert and awake. Speech and language functions are normal. Cranial nerves significant for left facial droop, visual baker are full. On muscle strength testing, there is left pronator drift and the arm groups 45. On muscle strength testing, (right/left) deltoid 5/5-4+, triceps 5/5, biceps 5/4+, certified family mediator 5/4+ Sensory to touch is equal with no neglect. Patient has ataxia of left upper extremity for [id number] testing. - Labs CBC & Chem 7: 04/09/23 10:35 04/09/23 10:35 Labs: Abnormal Lab Results - Last 24 Hours (Table) 04/11/23 Range/Units 12:47 POC Glucose (mg/dL) 205 H (70-110) mg/dL Assessment and Plan Assessment: * Probable acute ischemic stroke manifesting with slurred speech, facial droop and mild left hemiparesis. Patient's current NIH stroke scale is 6. Patient not a candidate for TPA, as he arrived outside the window for TPA. * Hypertension * Diabetes * Hyperlipidemia * Dementia, at least moderate degree * X tobacco use Plan: * MRI of the brain without contrast, revealed evidence of acute/subacute ischemic stroke involving the right singh radiata and centrum semiovale of the frontal lobe, as well as a smaller focus of the left frontal lobe also present. * Patient has bilateral ischemic strokes. We will consider cardiology to evaluate for cardioembolic source, perhaps YOJANA/event monitor placement. * 2-D echo revealed normal left-ventricular size, wall thickness and EF is 50- 55%. Normal left atrial size. No MR. * CTA head and neck showed: No evidence of dissection of the cervical internal carotid arteries or vertebral arteries or any evidence of significant stenosis of the carotid bifurcation. No evidence of intracranial high-grade stenosis or intracranial aneurysm. Bilateral focal mild to moderate stenosis of the distal intracranial vasculature including multifocal region and right M2/M3 segment and mild focal left M1 segment. * Fasting a.m. lipid panel cholesterol 103, LDL 38, HDL 44 and triglycerides 101. Agree with starting Lipitor 40 mg daily. (Patient at home on Crestor 20 mg) * Hemoglobin A1c 6.7 * Permissive hypertension for next 24-48 hours * Patient was not taking any antiplatelet medication at home. Patient was given aspirin 324 mg in the ER. Continue aspirin 81 mg daily. Patient will be placed on DAPT with Plavix 75 mg for 21 days, then stop Plavix and continue aspirin. * Neuro checks. * Telemetry monitoring so far does not show any arrhythmia. * Patient has at least moderate dementia currently on Aricept 5 mg for last few months. We will increase Aricept to 10 mg daily. * PT, OT, speech therapy * DVT prophylaxis: Lovenox 40 mg subcu daily
--- NOTE | 2023-04-12 11:44 | CA ---
Transthoracic Echo Report Name: Riaz Monge Age: 82 Gender: M : 1940 Exam Date: 04/12/2023 09:35 Exam Location: [place] [facility] Ht (in): 71 Wt (lb): 201 Ordering Physician: Jamie Holley MD ([id number]) Attending/Referring Phys: Construction Site Manager Feliz Garnica Procedure CPT: Indications: CVA Cardiac Hx: Technical Quality: Fair Contrast 1: Total Dose (mL): Contrast 2: Total Dose (mL): MEASUREMENTS (Male / Female) Normal Values FINDINGS Left Ventricle Right Ventricle Right Atrium Negative agitated saline study. Left Atrium Mitral Valve Aortic Valve Tricuspid Valve Pulmonic Valve Pericardium Aorta CONCLUSIONS Negative Bubble study. We did not notice any bubbles crossed the interatrial septum This an incomplete and suboptimal study Please repeat a complete 2-D echo Previewed by: Dr. Nuno Titus MD (Electronically Signed) Final Date: 12 April 2023 11:43
[2023-04-12 12:15] LABS: Glucose,Whole Blood 103 mg/dL (70-110)
--- NOTE | 2023-04-12 13:26 | P.PN ---
Subjective Progress Note Date: 04/12/23 Progress note 04/12/2023 Patient is doing well from cardiac vessel standpoint. There is no evidence of atrial fibrillation on telemetry monitoring. He is hemodynamically stable. Patient is still waiting for his full echocardiogram to be done. HISTORY OF PRESENTING ILLNESS 82-year-old with PMH of dementia, HTN, hyperlipidemia. Presents to the emergen cy department due to the concerns of speech deficit and left-sided facial droop. Patient reports that he woke up twice a day symptoms at 7 AM. Last well-known time was 5. Before he went to sleep. On admission to ER he had left-sided facial droop and left upper extremity arm drift. Speech was clear but seemed to have mild expressive aphasia. He was not a candidate for TPA. His initial troponin was 0.12. CT head showed bilateral focal [id number] stenosis of distal intracranial vessels, with no evidence of high-grade stenosis or aneurysms. His ECG showed sinus rhythm with first-degree AV block. CT head showed bilateral multifocal areas of hypoattenuation and multiple small areas of encephalomalacia. He's been treated for several aspirin accident and cardiology was consulted to look for any cardiac embolic etiology. REVIEW OF SYSTEMS 14 point review of system is negative except what is mentioned above in HPI. PHYSICAL EXAMINATION Vital signs reviewed. Head: Normocephalic. Eyes: Sclerae nonicteric. Neck: Brisk carotid upstroke, no jugular venous distention. Lungs: Clear to auscultation. Heart: Regular rate and rhythm, S1-S2, no S3, no murmur or rub. Abdomen: Soft nontender, positive bowel sounds no organomegaly. Extremities: No edema, intact distal pulses. Neuro: Alert, oritented, left sided facial droop ASSESSMENT Acute CVA Moderate intracranial vessel stenosis Essential hypertension Type II Diabetes dyslipidemia Dementia Prior tobacco user PLAN Continue aspirin and Plavix as per neurology recommendations. Agree with discontinue Plavix after 21 days and continuing aspirin. Continue high-intensity statin Monitor on tele for Atrial fibrillation. No A. fib so far. On discharge plan for 30 day event monitor. Continue losartan 100mg and amlodipine 10mg for blood pressure control. Uptitrate blood pressure medications on out patient bases. Await echocardiogram study Objective - Vital Signs Vital signs: Vital Signs Temp 96.9 F L 04/12/23 08:00 Pulse 56 L 04/12/23 08:00 Resp 17 04/12/23 08:00 BP 131/88 04/12/23 08:00 Pulse Ox 96 04/12/23 08:00 FiO2 Intake & Output 04/11/23 04/12/23 04/12/23 18:59 06:59 18:59 Intake Total 2060 20 Output Total 400 650 Balance 1660 -630 Weight 91.6 kg Intake: IV 20 20 Invasive Line 1 20 20 Oral 2039 Output: Urine 400 650 Stool 0 Other: Voiding Method Urinal Urinal Urinal # Voids 1 2 # Bowel Movements 1 - Labs CBC & Chem 7: 04/09/23 10:35 04/09/23 10:35 Labs: Abnormal Lab Results - Last 24 Hours (Table) 04/11/23 04/11/23 04/12/23 Range/Units 16:34 20:25 03:48 POC Glucose (mg/dL) 148 H 126 H (70-110) mg/dL Hemoglobin A1c 6.8 H (<=6.0) % 04/12/23 Range/Units 06:45 POC Glucose (mg/dL) 133 H (70-110) mg/dL Hemoglobin A1c (<=6.0) %
--- NOTE | 2023-04-12 14:03 | P.PN ---
Subjective Progress Note Date: 04/12/23 Hospital Course: Patient is a very pleasant 82-year-old male with a past medical history of dem entia, hypertension, and hyperlipidemia. He presented to emergency department from an [facility] home with reports that patient went bed at 5 PM the evening before and awoke this morning at 7:15 AM with left-sided weakness and had to crawl on the floor to get out of his room. Patient was reported to have a speech deficit and left-sided facial droop. EMS was called for transportation to the hospital. Upon arrival to our facility patient continues with left-sided facial droop and left upper extremity arm drift. Patient appears to have equal strength and movement of the bilateral lower extremities. Speech is currently clear, patient is noted to have mild expressive aphasia but this may also be baseline with his dementia. Vital signs upon arrival as follows blood pressure 176/86, heart rate 65, respiratory rate 18, temperature 98.2F, SpO2 96% on room air EKG completed showing sinus bradycardia at 56 bpm with a first-degree AV block with AL interval of 250 ms. Owtfw-so-blcn glucose was completed resulting in the 139. CT head was completed negative for acute intercranial process revealing bilateral multifocal areas of hypotension relation favoring remote punctate infarcts with encephalomalacia and chronic ischemic small vessel changes. CBC, coagulation profile, and CMP were all unremarkable. Troponin was negative at less than 0.012. CTA head revealed bilateral focal mild to moderate stenosis of the distal intracranial vascular and no evidence of intracranial high-grade sten osis or aneurysm. CTA neck showing no evidence of dissection of the cervical internal carotid arteries or vertebral arteries and no evidence of significant stenosis at carotid bifurcations. Stroke code was called upon patient's arrival. ED doctor reported initial NIH of 3, activated code stroke and discussed case with neuro interventional is Dr. Vazquez, reporting patient is not a candidate for TPA secondary to being outside of the window for treatment. Patient being admitted under our services with consultation to neurology. Echocardiogram showed LVEF 50-55%, trace tricuspid regurgitation. Brain MRI showed no evidence of acute/subacute CVA, evidence of remote injuries, nonspecific white matter changes secondary to small vessel ischemic disease. Cardiology was consulted. Echocardiogram had negative bubble study. Also will likely need a 30 day event monitor. Subjective: Patient seen and examined at bedside. No acute events overnight. Pertinent positives and negatives as discussed above, a complete review of systems was performed and all other systems are negative. Vitals Signs Reviewed. General: nontoxic, no distress, appears at stated age Derm: warm, dry Head: atraumatic, normocephalic, symmetric Eyes: EOMI, no lid lag, anicteric sclera Mouth: no lip lesion, mucus membranes moist Cardiovascular: S1S2 reg, no murmur Lungs: CTA bilateral, no rhonchi, no rales , no accessory muscle use Abdominal: soft, nontender to palpation, no guarding, no appreciable organ omegaly Ext: no gross muscle atrophy, no edema, no contractures Neuro: Left facial droop, left arm drift Psych: Alert, oriented 2, appropriate affect Data Reviewed Today: Pertinent Labs: A1c 6.8, blood sugars range between 103-148 Imaging: Echocardiogram had negative bubble study. Assessment and Plan: Active: Left-sided facial droop and left upper extremity weakness, acute CVA Hypertension Hyperlipidemia Dementia Type 2 diabetes, A1c 6.8 -Nephrology following, continue aspirin 81 mg daily, Plavix 75 mg for 21 days, Aricept increased to 10 mg daily -Continue atorvastatin 40 mg daily -continue amlodipine 10 mg, and losartan 100 mg daily -Cardiology note reviewed, will likely need 30 day event monitor -Started on sliding scale insulin, monitor for hypoglycemia -Continue neuro checks -Continue telemetry -PT/OT/speech therapy DVT ppx: Lovenox Code status: No code Anticipated discharge place: Assisted living facility versus long-term care Anticipated discharge time: Pending clinical course Objective - Vital Signs Vital signs: Vital Signs Temp 96.9 F L 04/12/23 08:00 Pulse 56 L 04/12/23 08:00 Resp 17 04/12/23 08:00 BP 131/88 04/12/23 08:00 Pulse Ox 96 04/12/23 08:00 FiO2 Intake & Output 04/11/23 04/12/23 04/12/23 18:59 06:59 18:59 Intake Total 0 20 Output Total 400 650 Balance 1660 -630 Weight 91.6 kg Intake: IV 20 20 Invasive Line 1 20 20 Oral 2039 Output: Urine 400 650 Stool 0 Other: Voiding Method Urinal Urinal Urinal # Voids 1 2 # Bowel Movements 1 - Labs CBC & Chem 7: 04/09/23 10:35 04/09/23 10:35 Labs: Abnormal Lab Results - Last 24 Hours (Table) 04/11/23 04/11/23 04/12/23 Range/Units 16:34 20:25 03:48 POC Glucose (mg/dL) 148 H 126 H (70-110) mg/dL Hemoglobin A1c 6.8 H (<=6.0) % 04/12/23 Range/Units 06:45 POC Glucose (mg/dL) 133 H (70-110) mg/dL Hemoglobin A1c (<=6.0) %
[2023-04-12 16:39] LABS: Glucose,Whole Blood 113 mg/dL (70-110)
[2023-04-12 20:30] LABS: Glucose,Whole Blood 155 mg/dL (70-110)
[2023-04-12] MEDS: amLODIPine 5 MG TAB PO SCH (20:32)
[2023-04-12] MEDS: ENOXAPARIN 40 MG/0.4 ML SYRINGE SQ SCH (20:32)
[2023-04-13 06:41] LABS: Glucose,Whole Blood 118 mg/dL (70-110)
[2023-04-13] MEDS: INSULIN ASPART (NovoLOG) 100 UNIT/ML VIAL SQ SCH ×4 (06:41→21:28)
[2023-04-13] MEDS: IPRATROPIUM 0.5 MG/2.5 ML NEBU INHALATION SCH ×4 (07:51→20:10)
[2023-04-13] MEDS: SYMBICORT 80-4.5 MCG INHALER INHALATION SCH ×2 (07:51→20:10)
--- NOTE | 2023-04-13 09:16 | P.PN ---
Subjective Progress Note Date: 04/12/23 Patient was seen for a follow-up. Patient is doing better. No new focal symptoms. Denies headache. Objective - Vital Signs Vital signs: Vital Signs Temp 97.9 F 04/12/23 15:30 Pulse 57 L 04/12/23 15:30 Resp 18 04/12/23 15:30 BP 163/83 04/12/23 15:30 Pulse Ox 98 04/12/23 15:30 FiO2 Intake & Output 04/11/23 04/12/23 04/12/23 18:59 06:59 18:59 Intake Total 206 20 Output Total 400 650 200 Balance 1660 -630 -200 Weight 91.6 kg Intake: IV 20 20 Invasive Line 1 20 20 Oral 2039 Output: Urine 400 650 200 Stool 0 Other: Voiding Method Urinal Urinal Urinal # Voids 1 2 1 # Bowel Movements 1 - Exam Patient is alert and awake. Speech and language functions are normal. Cranial nerves significant for left facial droop, better than yesterday. His visual baker are full, tongue protrudes to the midline. On muscle strength testing, there is left pronator drift and the arm droops about 30. On muscle strength testing, (right/left) deltoid 5/5-, triceps 5/5, biceps 5/5-, wardrobe specialist 5/5- Sensory to touch is equal with no neglect. Patient has ataxia of left upper extremity for ylnvpm-rg-ybbh testing, better than yesterday. - Labs CBC & Chem 7: 04/09/23 10:35 04/09/23 10:35 Labs: Abnormal Lab Results - Last 24 Hours (Table) 04/11/23 04/12/23 04/12/23 Range/Units 20:25 03:48 06:45 POC Glucose (mg/dL) 126 H 133 H (70-110) mg/dL Hemoglobin A1c 6.8 H (<=6.0) % 04/12/23 Range/Units 16:38 POC Glucose (mg/dL) 113 H (70-110) mg/dL Hemoglobin A1c (<=6.0) % Assessment and Plan Assessment: * Acute ischemic stroke manifesting with slurred speech, facial droop and mild left hemiparesis. MRI of the brain revealed evidence of multiple small areas of ischemic infarctions in bilateral hemisphere, right > left. * Hypertension * Diabetes * Hyperlipidemia * Dementia, at least moderate degree * X tobacco use Plan: * Patient's examination has improved, and the left hemiparesis has improved. * MRI of the brain without contrast, revealed evidence of acute/subacute ischemic stroke involving the right singh radiata and centrum semiovale of the frontal lobe, as well as a smaller focus of the left frontal lobe also present. * Patient has bilateral ischemic strokes. Cardiology input appreciated. May consider 30 day event monitor. No need for YOJANA. * 2-D echo revealed normal left-ventricular size, wall thickness and EF is 50- 55%. Normal left atrial size. No MR. Negative bubble study. * CTA head and neck showed: No evidence of dissection of the cervical internal carotid arteries or vertebral arteries or any evidence of significant stenosis of the carotid bifurcation. No evidence of intracranial high-grade stenosis or intracranial aneurysm. Bilateral focal mild to moderate stenosis of the distal intracranial vasculature including multifocal region and right M2/M3 segment and mild focal left M1 segment. * Fasting a.m. lipid panel cholesterol 103, LDL 38, HDL 44 and triglycerides 101. Agree with starting Lipitor 40 mg daily. (Patient at home on Crestor 20 mg) * Hemoglobin A1c 6.7. Recommend healthy lifestyles, dietary adjustment. * Optimize control of blood pressure normotensive levels. * Patient was not taking any antiplatelet medication at home. Patient was given aspirin 324 mg in the ER. Continue aspirin 81 mg daily. Patient will be placed on DAPT with Plavix 75 mg for 21 days, then stop Plavix and continue aspirin. * Neuro checks. * Telemetry monitoring so far does not any atrial fibrillation. * Patient has at least moderate dementia currently on Aricept 5 mg for last few months. We will increase Aricept to 10 mg daily. May consider adding Namenda at a later time, as outpatient. * PT, OT, speech therapy * DVT prophylaxis: Lovenox 40 mg subcu daily * Neurologically clear for discharge. Recommend follow-up with neurologist in 2-4 weeks.
[2023-04-13] MEDS: amLODIPine 5 MG TAB PO SCH (09:48)
[2023-04-13] MEDS: ACETAMINOPHEN TAB 325 MG TAB PO PRN (09:48)
[2023-04-13] MEDS: CLOPIDOGREL 75 MG TAB PO SCH (09:48)
[2023-04-13] MEDS: ASPIRIN 81 MG PO SCH (09:48)
[2023-04-13] MEDS: ATORVASTATIN 40 MG TAB PO SCH (09:48)
[2023-04-13] MEDS: DONEPEZIL 10 MG TAB PO SCH (09:51)
[2023-04-13 12:02] LABS: Glucose,Whole Blood 114 mg/dL (70-110)
--- NOTE | 2023-04-13 17:34 | P.PN ---
Subjective Progress Note Date: 04/13/23 (Patient seen at 1015) Patient is an 82-year-old male past medical history of dementia, hypertension, M.D. dyslipidemia who presented to the emergency department [facility] with a few onset left-sided weakness and facial droop. On arrival to the ER he was slightly hypertensive with a blood pressure 176/86. CT head demonstrated bilateral multifocal areas of hypodensity representing remote punctate infarcts. CT of the head and neck revealed no evidence of high-grade intracranial stenosis, bilateral focal stenosis in the distal intracranial vasculature, no hemodynamically significant stenosis the internal carotids. Chest x-ray was negative. Laboratory analysis was unremarkable. Patient was admitted with concerns for acute stroke. Neurology was consulted. He is maintained on aspirin 81 mg and statin. Neurology recommended MRI of the brain which demonstrated small focus of acute or subacute infarct in the left frontal lobe as well as acute or subacute CVAs involving the right karen radiata and centrum semiovale. Echocardiogram demonstrated an ejection fraction of 50-55%, repeat limited echo was negative for bubble study. Cardiology does recommend outpatient 30 day event monitor. Patient seen and examined at bedside. He has no complaints other than wanting to go home. No nausea or vomiting. Wants to be left alone. We discussed his need for an outpatient event monitor patient is in agreement with plan. Vital signs reviewed General: nontoxic, no distress, appears at stated age Cardiovascular: S1S2 reg, no murmur, positive posterior tibial pulse bilateral, Lungs: CTA bilateral, no rhonchi, no rales , no accessory muscle use Abdominal: soft, nontender to palpation, no guarding, no appreciable organomegaly Ext: no gross muscle atrophy, no edema b/l lower extremities, no contractures Neuro: CN II-XI grossly intact, no focal neuro deficits Psych: Alert, oriented, appropriate affect Assessment/Plan: Acute right-sided chrona radiata CVA with smaller focus in the left frontal lobe Hypertension Hyperlipidemia Dementia - Case discussed with Dr. Holley (cardio). Echocardiogram does have adequate bubble study and no YOJANA indicated at this time. Patient would benefit from a 30 day event monitor. Order placed in chart. Nurse asked to contact nuclear medicine. -Neurology recommendations reviewed: Continue aspirin 81 mg daily, Plavix 75 mg daily for 21 days and then continue with aspirin alone, Aricept 10 mg daily -Atorvastatin 40 mg daily -Norvasc 5 mg daily, follow BP - await further cardio recs Newly discovered type 2 diabetes mellitus -A1c 6.8 Having continuous sliding-scale insulin -Anticipate home with dietary changes COPD without exacerbation Imaging: None new Data Review: None new -Discussed with social work multiple times throughout the day. Patient had a appear needed for possible rehab. I did discuss with the physician over the per to appear response. Patient has ambulated 165 feet with IV pole and supervision. It appears that he is most appropriate for close supervision in the outpatient setting. DVT prophylaxis: Lovenox Anticipated discharge date: in AM Anticipated discharge place: Return to [facility] This dictation was prepared using [employer] voice recognition software. Though every attempt is made to correct errors during dictation some may still exist. Objective - Vital Signs Vital signs: Vital Signs Temp 97.6 F 04/13/23 04:00 Pulse 56 L 04/13/23 04:00 Resp 16 04/13/23 04:00 BP 138/82 04/13/23 04:00 Pulse Ox 96 04/13/23 04:00 FiO2 Intake & Output 04/12/23 04/13/23 04/13/23 18:59 06:59 18:59 Output Total 200 450 Balance -200 -450 Weight 91 kg Output: Urine 200 450 Other: Voiding Method Urinal Urinal # Voids 1 1 - Labs CBC & Chem 7: 04/09/23 10:35 04/09/23 10:35 Labs: Abnormal Lab Results - Last 24 Hours (Table) 04/12/23 04/12/23 04/12/23 Range/Units 03:48 16:38 20:28 POC Glucose (mg/dL) 113 H 155 H (70-110) mg/dL Hemoglobin A1c 6.8 H (<=6.0) % 04/13/23 Range/Units 06:39 POC Glucose (mg/dL) 118 H (70-110) mg/dL Hemoglobin A1c (<=6.0) %
--- NOTE | 2023-04-13 18:17 | P.PN ---
Subjective Progress Note Date: 04/13/23 Progress note 04/12/2023 Patient is doing well from cardiac vessel standpoint. There is no evidence of atrial fibrillation on telemetry monitoring. He is hemodynamically stable. Patient is still waiting for his full echocardiogram to be done. 04/13/23 Patient is doing well from cardiac vessel standpoint. No evidence of atrial fibrillation on telemetry monitoring and last 48 hours. He is hemodynamics stable. His echocardiogram was reviewed. It did not show any LVOT outflow tract obstructions or any significant valvular dysfunction. His leftover systolic function was within normal range. HISTORY OF PRESENTING ILLNESS 82-year-old with PMH of dementia, HTN, hyperlipidemia. Presents to the emergency department due to the concerns of speech deficit and left-sided facial droop. Patient reports that he woke up twice a day symptoms at 7 AM. Last well-known time was 5. Before he went to sleep. On admission to ER he had left-sided facial droop and left upper extremity arm drift. Speech was clear but seemed to have mild expressive aphasia. He was not a candidate for TPA. His initial troponin was 0.12. CT head showed bilateral focal tjib-do-tqwpzplk stenosis of distal intracranial vessels, with no evidence of high-grade stenosis or aneurysms. His ECG showed sinus rhythm with first-degree AV block. CT head showed bilateral multifocal areas of hypoattenuation and multiple small areas of encephalomalacia. He's been treated for several aspirin accident and cardiology was consulted to look for any cardiac embolic etiology. REVIEW OF SYSTEMS 14 point review of system is negative except what is mentioned above in HPI. PHYSICAL EXAMINATION Vital signs reviewed. Head: Normocephalic. Eyes: Sclerae nonicteric. Neck: Brisk carotid upstroke, no jugular venous distention. Lungs: Clear to auscultation. Heart: Regular rate and rhythm, S1-S2, no S3, no murmur or rub. Abdomen: Soft nontender, positive bowel sounds no organomegaly. Extremities: No edema, intact distal pulses. Neuro: Alert, oritented, left sided facial droop ASSESSMENT Acute CVA Moderate intracranial vessel stenosis Essential hypertension Type II Diabetes dyslipidemia Dementia Prior tobacco user PLAN His bubble study was suboptimal but patient is not a candidate for PFO closure. I do not feel the need for any interpretation of bubble study with a YOJANA. Would obtain a 30 day event monitor prior to discharge for long-term monitoring to rule out any underlying atrial fibrillation. Outpatient follow-up with Dr. Holley in clinic. Continue aspirin and Plavix as per neurology recommendations. Agree with discontinue Plavix after 21 days and continuing aspirin. Continue high-intensity statin Continue losartan 100mg and amlodipine 10mg for blood pressure control. Uptitrate blood pressure medications on out patient bases. Cardiology team will sign off at this time. Patient is stable to be discharged from cardiac vessel standpoint. Please reconsult us in case of any question. Objective - Vital Signs Vital signs: Vital Signs Temp 97.3 F L 04/13/23 12:33 Pulse 63 04/13/23 12:33 Resp 15 04/13/23 12:33 BP 143/102 04/13/23 12:33 Pulse Ox 95 04/13/23 12:33 FiO2 Intake & Output 04/12/23 04/13/23 04/13/23 18:59 06:59 18:59 Intake Total 250 Output Total 200 450 300 Balance -200 -450 -50 Weight 91 kg Intake: Oral 250 Output: Urine 200 450 300 Other: Voiding Method Urinal Urinal Urinal # Voids 1 1 1 # Bowel Movements 1 - Labs CBC & Chem 7: 04/09/23 10:35 04/09/23 10:35 Labs: Abnormal Lab Results - Last 24 Hours (Table) 04/12/23 04/13/23 04/13/23 Range/Units 20:28 06:39 12:01 POC Glucose (mg/dL) 155 H 118 H 114 H (70-110) mg/dL
[2023-04-13 18:27] LABS: Glucose,Whole Blood 165 mg/dL (70-110)
[2023-04-13 21:27] LABS: Glucose,Whole Blood 122 mg/dL (70-110)
[2023-04-13] MEDS: ENOXAPARIN 40 MG/0.4 ML SYRINGE SQ SCH (21:27)
[2023-04-14 06:39] LABS: Glucose,Whole Blood 118 mg/dL (70-110)
[2023-04-14] MEDS: INSULIN ASPART (NovoLOG) 100 UNIT/ML VIAL SQ SCH ×2 (06:45→11:48)
[2023-04-14] MEDS: IPRATROPIUM 0.5 MG/2.5 ML NEBU INHALATION SCH ×4 (07:52→19:22)
[2023-04-14] MEDS: SYMBICORT 80-4.5 MCG INHALER INHALATION SCH ×2 (07:52→19:22)
[2023-04-14 08:59] VITALS: BMI 26.7
[2023-04-14] MEDS: ASPIRIN 81 MG PO SCH (10:23)
[2023-04-14] MEDS: amLODIPine 5 MG TAB PO SCH (10:23)
[2023-04-14] MEDS: ATORVASTATIN 40 MG TAB PO SCH (10:23)
[2023-04-14] MEDS: DONEPEZIL 10 MG TAB PO SCH (10:24)
[2023-04-14] MEDS: CLOPIDOGREL 75 MG TAB PO SCH (10:24)
--- NOTE | 2023-04-14 11:28 | P.PN ---
Subjective Progress Note Date: 04/13/23 Patient was seen for a follow-up. Patient is doing better. No new focal symptoms. Denies headache. Patient is sitting comfortably in the recliner. Objective - Vital Signs Vital signs: Vital Signs Temp 97.3 F L 04/13/23 12:33 Pulse 63 04/13/23 12:33 Resp 15 04/13/23 12:33 BP 143/102 04/13/23 12:33 Pulse Ox 95 04/13/23 12:33 FiO2 Intake & Output 04/12/23 04/13/23 04/13/23 18:59 06:59 18:59 Intake Total 250 Output Total 200 450 300 Balance -200 -450 -50 Weight 91 kg Intake: Oral 250 Output: Urine 200 450 300 Other: Voiding Method Urinal Urinal Urinal # Voids 1 1 1 # Bowel Movements 1 - Exam Patient is alert and awake. Speech and language functions are normal. Cranial nerves significant for left facial droop, mild degree. His visual baker are full, tongue protrudes to the midline. On muscle strength testing, there is left pronator drift and the arm droops about 30. On muscle strength testing, (right/left) deltoid 5/5-, triceps 5/5, biceps 5/5, archivist political history 5/5-. Hip flexion 5/5-, ankle dorsiflexion 5/5. Sensory to touch is equal with no neglect. Patient has ataxia of left upper extremity for rgnfhi-mj-lffy testing, better than yesterday. - Labs CBC & Chem 7: 04/09/23 10:35 04/09/23 10:35 Labs: Abnormal Lab Results - Last 24 Hours (Table) 04/12/23 04/13/23 04/13/23 Range/Units 20:28 06:39 12:01 POC Glucose (mg/dL) 155 H 118 H 114 H (70-110) mg/dL Assessment and Plan Assessment: * Acute ischemic stroke manifesting with slurred speech, facial droop and mild l eft hemiparesis. MRI of the brain revealed evidence of multiple small areas of ischemic infarctions in bilateral hemisphere, right > left. * CTA revealed mild to moderate intracranial atherosclerotic disease. * Hypertension * Diabetes * Hyperlipidemia * Dementia, at least moderate degree * X tobacco use Plan: * Patient's examination has improved, and the left hemiparesis has improved. * MRI of the brain without contrast, revealed evidence of acute/subacute ischemic stroke involving the right singh radiata and centrum semiovale of the frontal lobe, as well as a smaller focus of the left frontal lobe also present. * Patient has bilateral ischemic strokes. Cardiology input appreciated. Patient to undergo a 30 day event monitoring outpatient. No need for YOJANA. * 2-D echo revealed normal left-ventricular size, wall thickness and EF is 50-55 %. Normal left atrial size. No MR. Negative bubble study. * CTA head and neck showed: No evidence of dissection of the cervical internal carotid arteries or vertebral arteries or any evidence of significant stenosis of the carotid bifurcation. No evidence of intracranial high-grade stenosis or intracranial aneurysm. Bilateral focal mild to moderate stenosis of the distal intracranial vasculature including multifocal region and right M2/M3 segment and mild focal left M1 segment. * Fasting a.m. lipid panel cholesterol 103, LDL 38, HDL 44 and triglycerides 101. Agree with starting Lipitor 40 mg daily. (Patient at home on Crestor 20 mg) * Hemoglobin A1c 6.7. Recommend healthy lifestyles, dietary adjustment. * Optimize control of blood pressure normotensive levels. * Patient was not taking any antiplatelet medication at home. Patient was given aspirin 324 mg in the ER. Continue aspirin 81 mg daily. Patient will be placed on DAPT with Plavix 75 mg for 21 days, then stop Plavix and continue aspirin. * Neuro checks. * Telemetry monitoring so far does not any atrial fibrillation. * Patient has at least moderate dementia currently on Aricept 5 mg for last few months. We will increase Aricept to 10 mg daily. May consider adding Namenda at a later time, as outpatient. * PT, OT, speech therapy * DVT prophylaxis: Lovenox 40 mg subcu daily * Neurologically clear for discharge. Recommend follow-up with neurologist in 2-4 weeks.
[2023-04-14 11:48] LABS: Glucose,Whole Blood 101 mg/dL (70-110)
--- NOTE | 2023-04-14 13:59 | P.DS ---
Providers Date of admission: 04/09/23 13:07 Expected date of discharge: 04/14/23 Attending physician: Jarrett Wallace MD Consults: 04/09/23 13:06 Consult Physician Urgent Consulting Provider: Satinder Parry Consult Reason/Comments: Left-sided facial droop, acute dysarthria, suspected CVA Do you want consulting provider notified?: Yes 04/11/23 15:05 Consult Physician Routine Consulting Provider: Chester Palencia Consult Reason/Comments: Bilateral CVA, consider YOJANA Do you want consulting provider notified?: Yes Primary care physician: Tang Puentes Hospital Course: Discharge Diagnosis: Acute right-sided singh radiata 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 dyslipidemia who presented to the emergency department from his adult foster [facility] with a few onset left-sided weakness and facial droop. On arrival to the ER he was slightly hypertensive with a blood pressure 176/86. CT head demonstrated bilateral multifocal areas of hypodensity representing remote punctate infarcts. CT of the head and neck revealed no evidence of high-grade intracranial stenosis, bilateral focal stenosis in the distal intracranial vasculature, no hemodynamically significant stenosis the internal carotids. Chest x-ray was negative. Laboratory analysis was unremarkable. Patient was admitted with concerns for acute stroke. Neurology was consulted. He is maintained on aspirin 81 mg and statin. Neurology recommended MRI of the brain which demonstrated small focus of acute or subacute infarct in the left frontal lobe as well as acute or subacute CVAs involving the right singh radiata and centrum semiovale. Echocardiogram demonstrated an ejection fraction of 50-55%, repeat limited echo was negative for bubble study. Cardio and neurology felt he was optimized for discharge with a 30 day event monitor. He was assessed for potential rehab placement, but was able to ambulate 165 feet after discussion with [facility] it was determined that he would be best served in a monitored environment, but did not dedicated nursing or therapy care consistent with a penitentiary facility. Follow-up: Dr. Villasenor in 2 weeks, Dr[facility] Holley [facility] Dr. Puentes, aspirin and Plavix for 21 days and then aspirin alone. Home health care. Repeat A1C in 3 months-- 6.8 currently. Patient seen and examined at bedside. No complaints on my initial evaluation. He then had some chest pain that lasted less than 5 minutes and resolved- EKG ordered and review and remains unchanged. Troponin negative. He remains stable for discharge. Vital signs reviewed and stable. General: nontoxic, no distress, appears at stated age Cardiovascular: S1S2 reg, no murmur, positive posterior tibial pulse bilateral, Lungs: CTA bilateral, no rhonchi, no rales , no accessory muscle use Abdominal: soft, nontender to palpation, no guarding, no appreciable organomegaly Ext: no gross muscle atrophy, no edema b/l lower extremities, no contractures Neuro: left sided facil droop, moving all 4 extremities independently. Psych: Alert, oriented, appropriate affect A total of 35 minutes of time were spent preparing this complex discharge summary. Patient was discharged on 04/14/23. This dictation was prepared using [employer] voice recognition software. Though every attempt is made to correct errors during dictation some may still exist. Patient Condition at Discharge: Stable Plan - Discharge Summary New Discharge Prescriptions: New Clopidogrel [Plavix] 75 mg PO DAILY #21 tab Aspirin 81 mg PO DAILY tab Continue Fluticasone/Umeclidin/Vilanter [Trelegy Ellipta 100-62.5-25] 1 puff INHALATION RT-DAILY Rosuvastatin [Crestor] 20 mg PO DAILY amLODIPine [Norvasc] 10 mg PO DAILY Donepezil [Aricept] 5 mg PO DAILY ALPRAZolam [Xanax] 0.125 - 0.25 mg PO DAILY PRN PRN Reason: Anxiety Discontinued Losartan Potassium [Cozaar] 100 mg PO DAILY Discharge Medication List ALPRAZolam [Xanax] 0.125 - 0.25 mg PO DAILY PRN 04/09/23 [History] Donepezil [Aricept] 5 mg PO DAILY 04/09/23 [History] Fluticasone/Umeclidin/Vilanter [Trelegy Ellipta 100-62.5-25] 1 puff INHALATION RT-DAILY 04/09/23 [History] Rosuvastatin [Crestor] 20 mg PO DAILY 04/09/23 [History] amLODIPine [Norvasc] 10 mg PO DAILY 04/09/23 [History] Aspirin 81 mg PO DAILY tab 04/14/23 [Rx] Clopidogrel [Plavix] 75 mg PO DAILY #21 tab 04/14/23 [Rx] Follow up Appointment(s)/Referral(s): Jamie Holley MD [Medical Doctor] - 4 Weeks Jaylyn Heath MD [REFERRING] - 2 Weeks [facility] [NON-STAFF] - 1 Week ([facility] will call you to arrange a visit) Tang Puentes DO [Primary Care Provider] - 1-2 days Patient Instructions/Handouts: Type 2 Diabetes in Adults: New Diagnosis (DC), Mediterranean Diet (DC) Activity/Diet/Wound Care/Special Instructions: Activity: As tolerated Diet: Heart Healthy, consistent carb Special Instructions: Your A1C is mildly elevated consistent with possible diabetes. We recommend that you limit your intake of sugar and simple carbs. Repeat A1C in 3 months. Please wear your 30 days event monitor to assess if you could have an underlying heart rhythm abnormality that would predispose you to having a stoke. You need to follow-up with Cardiology for the results. Discharge/Stand Alone Forms: Adult Foster Shelter List, Assisted Living Facilities, Community Resources
[2023-04-14 17:28] VITALS: BP 150/92; PULSE 62; RESP 15; TEMP 98.2
== END 2023-04-14 14:40 | DRG 65 ==
LOC: EC 10:20 → 3SCARD 13:07 → 2SICU 04-10 10:51
PROVIDERS: ADMIT Student in an Organized Health Care Education/Training Program; ATTEND Student in an Organized Health Care Education/Training Program
DX: I63.81 Other cerebral infarction due to occlusion or stenosis of small artery (principal); G81.94 Hemiplegia, unspecified affecting left nondominant side; J44.9 Chronic obstructive pulmonary disease, unspecified; R47.01 Aphasia; I67.2 Cerebral atherosclerosis; I10 Essential (primary) hypertension; E11.9 Type 2 diabetes mellitus without complications; F03.B0 Unspecified dementia, moderate, without behavioral disturbance, psychotic disturbance, mood disturbance, and anxiety; I44.0 Atrioventricular block, first degree; E78.5 Hyperlipidemia, unspecified; F17.210 Nicotine dependence, cigarettes, uncomplicated; Z71.6 Tobacco abuse counseling; I45.10 Unspecified right bundle-branch block; R29.703 NIHSS score 3; I95.9 Hypotension, unspecified; R29.706 NIHSS score 6; R29.810 Facial weakness; Z79.82 Long term (current) use of aspirin; G93.89 Other specified disorders of brain; Z79.02 Long term (current) use of antithrombotics/antiplatelets; Z79.899 Other long term (current) drug therapy; Z66 Do not resuscitate
CPT/HCPCS: 36415; 70450; 70496; 70498; 70551; 71046; 80053; 80061; 82550; 83036; 84484; 85025; 85610; 85730; 93005; 93270; 93306; 93308; 96372; 99291

== ENCOUNTER 2023-07-30 09:21 | Emergency (ER) | payer MEDICARE ==
--- NOTE | 2023-07-30 09:33 | ED ---
General Adult HPI - General Stated complaint: Weakness Time Seen by Provider: 07/30/23 09:21 Source: patient, RN notes reviewed, old records reviewed - History of Present Illness Initial comments: This is an 82-year-old male who presents to the emergency department after having a possible syncopal episode fell hit front of his face states that one of his teeth is loose. Patient denies any headache patient denies any neck pain patient has numbness weakness. Patient Nuys chest pain difficulty breathing. Patient has any recent fever chills or cough or patient has any abdominal pain patient has nausea vomit diarrhea. Patient Nuys any lower extremity pain. Patient Nuys any back pain. Patient states prior to passing out he does not remember being lightheaded. - Related Data Home Medications Medication Instructions Recorded Confirmed ALPRAZolam [Xanax] 0.125 - 0.25 mg PO DAILY PRN 04/09/23 04/09/23 Donepezil [Aricept] 5 mg PO DAILY 04/09/23 04/09/23 Fluticasone/Umeclidin/Vilanter 1 puff INHALATION RT-DAILY 04/09/23 04/09/23 [Trelegy Ellipta 100-62.5-25] Rosuvastatin [Crestor] 20 mg PO DAILY 04/09/23 04/09/23 amLODIPine [Norvasc] 10 mg PO DAILY 04/09/23 04/09/23 Previous Rx's Medication Instructions Recorded Aspirin 81 mg PO DAILY tab 04/14/23 Clopidogrel [Plavix] 75 mg PO DAILY #21 tab 04/14/23 Allergies Allergy/AdvReac Type Severity Reaction Status Date / Time No Known Allergies Allergy Verified 04/09/23 13:25 Review of Systems ROS Statement: Those systems with pertinent positive or pertinent negative responses have been documented in the HPI. ROS Other: All systems not noted in ROS Statement are negative. Past Medical History Past Medical History: Hypertension Additional Past Medical History / Comment(s): Dementia, History of Any Multi-Drug Resistant Organisms: None Reported Past Surgical History: Unable to Obtain Past Psychological History: No Psychological Hx Reported Smoking Status: Former smoker Past Alcohol Use History: Occasional Past Drug Use History: None Reported General Exam - General Exam Comments Initial Comments: GENERAL: Patient is well-developed and well-nourished. Patient is nontoxic and well-hydrated and is in mild distress. ENT: Neck is soft and supple. No significant lymphadenopathy is noted. Oropharynx is clear. Dry mucous membranes. Neck has full range of motion without eliciting any pain. Patient has a loose lower incisor. EYES: The sclera were anicteric and conjunctiva were pink and moist. Extraocular movements were intact and pupils were equal round and reactive to light. Ey elids were unremarkable. PULMONARY: Unlabored respirations. Good breath sounds bilaterally. No audible rales rhonchi or wheezing was noted. CARDIOVASCULAR: There is a regular rate and rhythm without any murmurs gallops or rubs. ABDOMEN: Soft and nontender with normal bowel sounds. SKIN: Skin is clear with no lesions or rashes and otherwise unremarkable. NEUROLOGIC: Patient is alert and oriented x3. Cranial nerves II through XII are grossly intact. Motor and sensory are also intact. Normal speech, volume and content. Symmetrical smile. MUSCULOSKELETAL: Normal extremities with adequate strength and full range of motion. No lower extremity swelling or edema. No calf tenderness. LYMPHATICS: No significant lymphadenopathy is noted PSYCHIATRIC: Normal psychiatric evaluation. Course Vital Signs 07/30/23 07/30/23 07/30/23 09:23 10:00 11:00 Temperature 98.0 F 98.1 F Pulse Rate 68 70 60 Respiratory 20 18 16 Rate Blood Pressure 129/83 129/85 129/85 O2 Sat by Pulse 97 Oximetry Medical Decision Making - Medical Decision Making EKG is interpreted by myself. EKG shows a sinus rhythm at 60 bpm IN interval is 212 QRS is 178 QT interval is 482 QTc is 484. Patient's EKG shows a right bundle branch block Was pt. sent in by a medical professional or institution ([facility]ey, [employer], urgent care, hospital, or fdc...) When possible be specific @ -No Did you speak to anyone other than the patient for history (EMS, parent, family, police, friend...)? What history was obtained from this source @ -EMS gave most of the history Did you review nursing and triage notes (agree or disagree)? Why? @ -I reviewed and agree with nursing and triage notes Were old charts reviewed (outside hosp., previous admission, EMS record, old EKG, old radiological studies, urgent care reports/EKG's, fdc records)? Report findings @ -I have reviewed prior charts and lab work on this patient Differential Diagnosis (chest pain, altered mental status, abdominal pain women, abdominal pain men, vaginal bleeding, weakness, fever, dyspnea, syncope, headache, dizziness, GI bleed, back pain, seizure, CVA, palpatations, mental health, musculoskeletal)? @ -Differential Syncope: Valvular disease, hypertrophic cardiomyopathy, pulmonary embolism, tamponade, tachycardia, bradycardia, [place], hypovolemia, hemorrhage, dissection, anemia, intracranial hemorrhage, seizure, hypoglycemia, carbon monoxide poisoning, this is not meant to be an all-inclusive list. EKG interpreted by me (3pts min.). @ -As above X-rays interpreted by me (1pt min.). @ -Chest x-ray shows no acute abnormality CT interpreted by me (1pt min.). @ -CT of the brain shows no acute normality CT of the C-spine shows no acute abnormality CT of the facial bones showed no fractures only a displaced lower front incisor U/S interpreted by me (1pt. min.). @ -None done What testing was considered but not performed or refused? (CT, X-rays, U/S, labs)? Why? @ -None What meds were considered but not given or refused? Why? @ -None Did you discuss the management of the patient with other professionals (professionals i.e. , PA, [employer], lab, RT, psych nurse, director social, retail equipment associate, teacher, booking officer, case folder)? Give summary @ -No Was smoking cessation discussed for >3mins.? @ -No Was critical care preformed (if so, how long)? @ -No Were there social determinants of health that impacted care today? How? (Homelessness, low income, unemployed, alcoholism, drug addiction, transportation, low edu. Level, literacy, decrease access to med. care, snf, rehab)? @ -No Was there de-escalation of care discussed even if they declined (Discuss DNR or withdrawal of care, Hospice)? DNR status @ -No What co-morbidities impacted this encounter? (DM, HTN, Smoking, COPD, CAD, Cancer, CVA, ARF, Chemo, Hep., AIDS, mental health diagnosis, sleep apnea, morbid obesity)? @ -None Was patient admitted / discharged? Hospital course, mention meds given and route, prescriptions, significant lab abnormalities, going to OR and other pertinent info. @ -Patient was up ambulating at his baseline his mental status was at his baseline per his to kids and patient was eating and did not want to stay and wanted to be discharged. Family was okay with this so patient will be discharged Undiagnosed new problem with uncertain prognosis? @ -No Drug Therapy requiring intensive monitoring for toxicity (Heparin, Nitro, Insulin, Cardizem)? @ -No Were any procedures done? @ -No Diagnosis/symptom? @ -Fall Acute, or Chronic, or Acute on Chronic? @ -Acute Uncomplicated (without systemic symptoms) or Complicated (systemic symptoms)? @ -Complicated Side effects of treatment? @ -No Exacerbation, Progression, or Severe Exacerbation? @ -No Poses a threat to life or bodily function? How? (Chest pain, [place], [place], pneumonia, PE, COPD, DKA, ARF, appy, cholecystitis, CVA, Diverticulitis, Homicidal, Suicidal, threat to staff... and all critical care pts) @ -No Diagnosis/symptom? @ -Avulsed tooth Acute, or Chronic, or Acute on Chronic? @ -Acute Uncomplicated (without systemic symptoms) or Complicated (systemic symptoms)? @ -Uncomplicated Side effects of treatment? @ -None Exacerbation, Progression, or Severe Exacerbation] @ -No Poses a threat to life or bodily function? @ -No Diagnosis/symptom? @ -Possible syncope Acute, or Chronic, or Acute on Chronic? @ -Acute Uncomplicated (without systemic symptoms) or Complicated (systemic symptoms)? @ -complicated Side effects of treatment? @ -None Exacerbation, Progression, or Severe Exacerbation] @ -No Poses a threat to life or bodily function? @ -No - Lab Data Result diagrams: 07/30/23 09:49 07/30/23 09:49 Lab Results 07/30/23 07/30/23 07/30/23 Range/Units 09:49 09:49 09:49 WBC 7.9 (3.8-10.6) k/uL RBC 5.26 (4.30-5.90) m/uL Hgb 16.2 (13.0-17.5) gm/dL Hct 48.1 (39.0-53.0) % MCV 91.5 (80.0-100.0) fL MCH 30.9 (25.0-35.0) pg MCHC 33.8 (31.0-37.0) g/dL RDW 13.4 (11.5-15.5) % Plt Count 176 (150-450) k/uL MPV 8.4 Neutrophils % 81 % Lymphocytes % 10 % Monocytes % 7 % Eosinophils % 0 % Basophils % 0 % Neutrophils # 6.4 (1.3-7.7) k/uL Lymphocytes # 0.8 L (1.0-4.8) k/uL Monocytes # 0.5 (0-1.0) k/uL Eosinophils # 0.0 (0-0.7) k/uL Basophils # 0.0 (0-0.2) k/uL PT 10.4 (10.0-12.5) sec INR 0.9 (<1.2) APTT 23.3 (22.0-30.0) sec Sodium 140 (137-145) mmol/L Potassium 3.9 (3.5-5.1) mmol/L Chloride 109 H (98-107) mmol/L Carbon Dioxide 23 (22-30) mmol/L Anion Gap 8 mmol/L BUN 23 H (9-20) mg/dL Creatinine 0.83 (0.66-1.25) mg/dL Est GFR (CKD-EPI)AfAm >90 (>60 ml/min/1.73 sqM) Est GFR (CKD-EPI)NonAf 83 (>60 ml/min/1.73 sqM) Glucose 163 H (74-99) mg/dL Plasma Lactic Acid Jovani (0.7-2.0) mmol/L Calcium 9.3 (8.4-10.2) mg/dL Magnesium 2.3 (1.6-2.3) mg/dL Total Bilirubin 1.0 (0.2-1.3) mg/dL AST 47 (17-59) U/L ALT 83 H (4-49) U/L Alkaline Phosphatase 116 (38-126) U/L Troponin I (0.000-0.034) ng/mL Total Protein 7.2 (6.3-8.2) g/dL Albumin 4.2 (3.5-5.0) g/dL 07/30/23 07/30/23 Range/Units 09:49 09:49 WBC (3.8-10.6) k/uL RBC (4.30-5.90) m/uL Hgb (13.0-17.5) gm/dL Hct (39.0-53.0) % MCV (80.0-100.0) fL MCH (25.0-35.0) pg MCHC (31.0-37.0) g/dL RDW (11.5-15.5) % Plt Count (150-450) k/uL MPV Neutrophils % % Lymphocytes % % Monocytes % % Eosinophils % % Basophils % % Neutrophils # (1.3-7.7) k/uL Lymphocytes # (1.0-4.8) k/uL Monocytes # (0-1.0) k/uL Eosinophils # (0-0.7) k/uL Basophils # (0-0.2) k/uL PT (10.0-12.5) sec INR (<1.2) APTT (22.0-30.0) sec Sodium (137-145) mmol/L Potassium (3.5-5.1) mmol/L Chloride (98-107) mmol/L Carbon Dioxide (22-30) mmol/L Anion Gap mmol/L BUN (9-20) mg/dL Creatinine (0.66-1.25) mg/dL Est GFR (CKD-EPI)AfAm (>60 ml/min/1.73 sqM) Est GFR (CKD-EPI)NonAf (>60 ml/min/1.73 sqM) Glucose (74-99) mg/dL Plasma Lactic Acid Jovani 1.5 (0.7-2.0) mmol/L Calcium (8.4-10.2) mg/dL Magnesium (1.6-2.3) mg/dL Total Bilirubin (0.2-1.3) mg/dL AST (17-59) U/L ALT (4-49) U/L Alkaline Phosphatase (38-126) U/L Troponin I <0.012 (0.000-0.034) ng/mL Total Protein (6.3-8.2) g/dL Albumin (3.5-5.0) g/dL Disposition Clinical Impression: Syncope, Fall, Avulsed tooth Disposition: HOME SELF-CARE Condition: Good Instructions (If sedation given, give patient instructions): Fall Prevention for Older Adults (ED) Additional Instructions: Patient should follow-up with a dentist for the avulsed tooth. Patient should return to the emergency department is any worse symptoms or new s ymptoms. Is patient prescribed a controlled substance at d/c from ED?: No Referrals: Tang Puentes DO [Primary Care Provider] - 1-2 days Time of Disposition: 12:42
[2023-07-30] MEDS: SODIUM CHLORIDE 0.9% 1,000 ML IV STA (10:10)
[2023-07-30] MEDS: SODIUM CHLORIDE 0.9% 500 ML 500 ML IV STA (10:10)
[2023-07-30 10:16] LABS: Basophils % (A) 0 %; Eosinophils % (A) 0 %; HCT 48.1 % (39.0-53.0); HGB 16.2 gm/dL (13.0-17.5); Lymphocytes # (A) 0.8 k/uL (1.0-4.8); Lymphocytes % (A) 10 %; MCH 30.9 pg (25.0-35.0); MCHC 33.8 g/dL (31.0-37.0); MCV 91.5 fL (80.0-100.0); Mean Platelet Volume 8.4; Monocytes # (A) 0.5 k/uL (0-1.0); Monocytes % (A) 7 %; Neutrophils # (A) 6.4 k/uL (1.3-7.7); Neutrophils % (A) 81 %; Platelet Count 176 k/uL (150-450); RBC 5.26 m/uL (4.30-5.90); RDW 13.4 % (11.5-15.5); WBC 7.9 k/uL (3.8-10.6)
[2023-07-30 10:21] LABS: INR 0.9 (<1.2); Partial Thromboplastin Time 23.3 sec (22.0-30.0); Prothrombin Time 10.4 sec (10.0-12.5)
[2023-07-30 10:27] LABS: ALT 83 U/L (4-49); AST 47 U/L (17-59); African American GFR (CKD) >90 (>60 ml/min/1.73 sqM); Albumin 4.2 g/dL (3.5-5.0); Alkaline Phosphatase 116 U/L (38-126); Anion Gap 8 mmol/L; Blood Urea Nitrogen 23 mg/dL (9-20); Calcium 9.3 mg/dL (8.4-10.2); Carbon Dioxide 23 mmol/L (22-30); Chloride 109 mmol/L (98-107); Glucose 163 mg/dL (74-99); Magnesium 2.3 mg/dL (1.6-2.3); Non-African American GFR(CKD) 83 (>60 ml/min/1.73 sqM); Potassium 3.9 mmol/L (3.5-5.1); Sodium 140 mmol/L (137-145); Total Protein 7.2 g/dL (6.3-8.2)
[2023-07-30 10:37] VITALS: TEMP 98.1
--- NOTE | 2023-07-30 10:54 | CT ---
EXAMINATION TYPE: CT brain cspine wo con, CT facial bones wo con CT DLP: 1119.3 mGycm, Automated exposure control for dose reduction was used. DATE OF EXAM: 07/30/2023 10:27 AM COMPARISON: 04/09/2023.. CLINICAL INDICATION:Male, 82 years old with history of Trauma; Fall, dizziness (accession [id number]), Fall, loose teeth (accession [id number]) TECHNIQUE: Brain: Multiple axial CT images of the brain were obtained without IV contrast. Cspine: Axial CT images from the skull base to the inferior aspect of T2 we obtained without intraven ous contrast. Coronal and sagittal reformatted images were also reviewed. Facial structures, axial imaging of the maxillary facial structures with sagittal coronal reformats. FINDINGS: Brain: Extra-axial spaces: No abnormal extra-axial fluid collections. Ventricular system: Dilatation in proportion to cerebral atrophy. Cerebral parenchyma: No acute intraparenchymal hemorrhage or mass effect. The millan-white junction is well differentiated. Scattered hypoattenuating areas are seen within the white matter. Cerebellum: Unremarkable. Mass effect: No evidence of midline shift. Intracranial vasculature: Atherosclerotic calcifications of the intracranial vessels. Soft tissues: Normal. Calvarium/osseous structures: No depressed skull fracture. Paranasal sinuses and mastoid air cells: Clear. Visualized orbits: Orbital contents are intact. Cervical spine: Fracture: None. Osseous structures: Minimal osteophyte formation and facet and uncovertebral joint arthropathy throug hout the visualized spine. Vertebral alignment: Within normal limits. Spinal canal/Neural Foramina: Disc osteophyte complexes at C4-C7 with at least mild spinal canal sten osis. Facet joint uncovertebral joint arthropathy scattered throughout the cervical spine with varyin g degrees of neural foraminal stenosis. Neck soft tissues: Prevertebral soft tissues are within normal limits. Other: The airway is patent. The lung apices are clear. Facial: 3 lower central teeth have no significant osseous base and are similar prior. Findings [place] t o represent chronic periodontal disease. One of the teeth has been displaced posteriorly compared to prior. There is no evidence additional of fracture, subluxation, dislocation, or significant soft tis sly swelling. The orbital contents are unremarkable.The temporal-mandibular joints appear symmetric. The visualized portion of the paranasal sinuses appear clear. IMPRESSION: 1. No acute intracranial process. 2. Nonspecific white matter changes, likely secondary to chronic small vessel ischemic disease. 3. No evidence of cervical spine fracture. 4. Moderate multilevel degenerative disc disease. 5. Multiple teeth in the in the central mandible have no osseous base surrounding the roots, finding s are similar prior and likely represent chronic periodontal disease. No fracture of the mandible is identified. One of the teeth has been displaced since prior.
--- NOTE | 2023-07-30 12:03 | XR ---
EXAMINATION TYPE: XR chest 2V DATE OF EXAM: 07/30/2023 11:32 AM CLINICAL INDICATION:Male, 82 years old with history of Weakness; COMPARISON: Chest radiographs from 04/09/2023 TECHNIQUE: XR chest 2V Frontal and lateral views of the chest. FINDINGS: Lungs/Pleura: There is no evidence of pleural effusion, focal consolidation, or pneumothorax. Pulmonary vascularity: Unremarkable. Heart/mediastinum: Cardiomediastinal silhouette is unremarkable. Musculoskeletal: No acute osseous pathology. IMPRESSION: No acute cardiopulmonary disease/process.
[2023-07-30] MEDS: ACETAMINOPHEN TAB 500 MG TAB PO STA (12:38)
[2023-07-30 12:52] VITALS: BP 144/86; PULSE 72; RESP 18
== END 2023-07-30 13:15 | disposition home or self-care (01) ==
LOC: EC 09:21 → SUPCPDRO 09:21 → EC 13:15
DX: S03.2XXA Dislocation of tooth, initial encounter (principal); Z87.891 Personal history of nicotine dependence; I45.10 Unspecified right bundle-branch block; I44.0 Atrioventricular block, first degree; W18.09XA Striking against other object with subsequent fall, initial encounter
CPT/HCPCS: 36415; 70450; 70486; 71046; 72125; 80053; 83605; 83735; 84484; 85025; 85610; 85730; 93005; 96360; 96361; 99285